=== PATIENT | male | born 1965 | race Caucasian/White ===

== ENCOUNTER 2017-03-21 19:16 | Emergency (ER) | payer BC, SELFPAY ==
[2017-03-21 19:17] VITALS: BP 155/102; PULSE 77; RESP 15; TEMP 36.4; O2SAT 97; BMI 31.5
[2017-03-21 19:25] VITALS: O2SAT 97
--- NOTE | 2017-03-21 19:36 | EKG12_ITS ---
Test Reason : COUGH Blood Pressure : / mmHG Vent. Rate : 079 BPM Atrial Rate : 079 BPM P-R Int : 148 ms QRS Dur : 086 ms QT Int : 370 ms P-R-T Axes : 026 004 017 degrees QTc Int : 424 ms Normal sinus rhythm Normal ECG Confirmed by CHIARA BROWNLEE, JULIET ([id number]), technical editor KRISHNA ONOFRE ([id number] on 03/23/2017 1:26:28 PM Referred By: GRAYSON Confirmed By:JULIET GUADARRAMA MD
--- NOTE | 2017-03-21 19:37 | CT_ITS ---
STUDY: CTA CHEST REASON FOR EXAM: Male, 51 years old. Shortness of breath. History of fractured clavicle RADIATION DOSAGE (If Supplied By Facility): CTDIvol = ( 16.73 ) mGy, DLP = ( 782.05 ) mGycm TECHNIQUE: The examination was performed with the intravenous administration of 100 ml of Isovue 370 contrast material. Post-processing of the angiographic images was performed, with multiplanar reformation and 3D reconstruction. Individualized dose optimization techniques were used for this CT. COMPARISON: None. FINDINGS: There are no pulmonary infiltrates or pleural effusions. There is a 1 cm nodule adjacent to the minor fissure in the right lower lobe (image 129 series 2). There is no pneumothorax. There are no filling defects within the pulmonary arteries to suggest pulmonary embolus. The pulmonary arteries are normal in caliber. There is no evidence of thoracic aortic aneurysm or dissection. The heart and pericardium are within normal limits. There is no thoracic lymphadenopathy. Images through the upper abdomen demonstrate no significant abnormality. There are no destructive osseous lesions. CT/CTA Chest W/WO Contrast IMPRESSION: No evidence of pulmonary embolus or other acute thoracic disease. 1 cm nodule in the right lower lobe. Short-term follow-up or further evaluation with PET/CT is recommended. Electronically Signed: Calvin Rondon, at 20:48 EST Tel , Service support ,
--- NOTE | 2017-03-21 19:37 | ED.VISSUMM ---
- ER Visit Summary Date of Service: 03/21/17 Chief Complaint: Cough, syncope History of Present Illness: The patient is a 51 M resents to the emergency department with 3 weeks of cough. The patient states that the symptoms have been progressive. He has been to the urgent care 3 separate times. He has been diagnosed with bronchitis. He was given Augmentin, prednisone, Tessalon Perles, and a cough suppressant. Feels like he is not improving. He denies any fevers or chills. He does feel mildly short of breath and has had intermittent chest pain with coughing. He denies any history of pulmonary embolus. He has had no fevers or night sweats. He states that today, he had a coughing fit and then passed out. It was witnessed by his . There was no seizure activity. He states that this happened 3 weeks ago with the same symptoms. Physical Examination: Vital signs reviewed General: Well-nourished, well-developed Head: Normocephalic, atraumatic Eyes: Pupils equal and reactive, extraocular muscles intact Neck, supple, no lymphadenopathy Heart: Regular rate and rhythm Respiratory: No distress, clear bilaterally Abdomen: Soft, nontender, nondistended, no peritoneal signs Back: Nontender Extremities: Nontender, no edema, no cords Skin: Normal color no rash Neuro: Alert and oriented, no focal or lateralizing deficits Test Results: KG shows no acute ischemic change. There is no prolonged QT. Screening labs are unremarkable. CTA shows no evidence of pulmonary embolus. There is a small pleural nodule. Emergency Department Course and Treatment: Patient has had cough syncope. With his cough and intermittent chest pain along with his intermittent shortness of breath I did feel that ruling out pulmonary embolus would be the most important. His EKG was unremarkable. There is no evidence of arrhythmia that would cause a syncopal episode. His CTA shows a small lung nodule, but no other acute abnormalities. His labs are unremarkable. I did discuss options with the patient. He wants to do outpatient therapy and I feel this is reasonable. I do feel the most important thing will be stopping or at least controlling his cough. The patient will placed on Lortab elixir. I did pet adoption counselor him that if he has any worsening symptoms or change in symptoms to return to the emergency department. Patient will be discharged home. Treatment Plan: [] Disposition: Discharge Impression:. Cough syncope This note was generated with [employer] dictation software. It may contain incorrect words, spelling, and punctuation that were not noted in review of the chart prior to signing ED Disposition - Plan for ED Patient: Disposition: Home or Assisted Living Chief Complaint: Cough Instructions: ED Cough Chronic Cause Unkn Prescriptions: Hydrocodone/APAP 7.5-325/15Ml [Lortab [Replacement] 7.5-325/15] 10 ml PO Q6H PRN PRN 3 Days #120 ml PRN Reason: Cough Referrals: Care Physician,No Primary [Primary Care Provider] -
[2017-03-21] MEDS: Ipratropium/Albuterol Sulfate 3 ML AMPUL.NEB INHALATION (19:46)
[2017-03-21 19:48] VITALS: PULSE 72; RESP 17
[2017-03-21 19:53] LABS: Absolute Lymphocyte Count 3.89 X10^3/ul (0.83-4.51); Absolute Neutrophil Count 3.6 X10^3/uL (2.0-7.7); Basophil# 0.03 X10^3/uL; Basophil% 0.4 % (0-1); Eosinophil# 0.11 X10^3/uL; Eosinophils% 1.3 % (0-5); Hematocrit 42.3 % (40-54); Hemoglobin 14.9 g/dl (13.0-16.5); Lymphocyte # 3.89 X10^3/ul (4.0); Lymphocyte % 46.4 % (19-41); Mean Corp Hgb Conc 35.2 g/gl (32-36); Mean Corpuscular Hgb 31.8 pg (27.0-32.0); Mean Corpuscular Volume 90.4 fL (80-94); Mean Platelet Vol. 10.4 fl (6.2-12.0); Monocyte# 0.75 X10^3/uL; Monocyte% 8.9 % (0-10); Neutrophil # 3.59 X10^3/uL (2.7-7.7); Neutrophil % 42.8 % (47-70); POSITIVE COUNT NO; POSITIVE DIFFERENTIAL NO; POSITIVE MORPHOLOGY NO; Platelet Count 207 K/mm3 (150-450); RBC Distribution Width CV 12.8 % (11.6-14.6); RBC Distribution Width SD 41.6 fl (35.1-43.9); Red Blood Count 4.68 M/mm3 (4.6-6.2); White Blood Count 8.4 K/mm3 (4.4-11.0)
[2017-03-21] MEDS: 0.9% Normal Saline 1,000 ML 1000 ML IV (19:57)
[2017-03-21 20:09] LABS: ALB/GLOB Ratio 1.2 RATIO (0.9-2.4); AST(SGOT) 18 U/L (15-37); Alanine Aminotransfer ALT/SGPT 44 U/L (16-61); Albumin, Serum 3.6 g/dL (3.2-5.0); Alkaline Phosphatase 77 U/L (45-117); Anion Gap 9 (5-15); BUN 18 mg/dL (7-18); BUN/Creat Ratio 16.8 RATIO (10-20); Calcium,Total 8.6 mg/dL (8.5-10.1); Chloride 108 mmol/L (98-107); Creatinine, Serum 1.07 mg/dL (0.70-1.30); EST Glomerular Filtration Rate 78 mL/min (>60); Est Glom Filt Rate - Afr Amer 94 mL/min (>60); Estimated Creatinine Clearance 85.28 ml/min; Glucose 107 mg/dL (74-106); Potassium 3.7 mmol/L (3.5-5.1); Protein, Total 6.6 g/dL (6.4-8.2); Sodium Level 143 mmol/L (136-145)
[2017-03-21 20:19] LABS: BNP,B-Type NATRIURETIC PEPTIDE 16.1 pg/mL (0-100)
--- NOTE | 2017-03-21 20:26 | ED.RN ---
PT REPORTS THAT TWICE PT HAS BEEN COUGHING SO HARD THAT HE PASSES OUT. THE FIRST TIME THIS HAPPENED WAS ABOUT 3 WEEKS AGO. PT REPORTS HE DOES NOT RECALL THE EVENTS. WELL. DENIES CHEST PAIN. PT REPORTS HARSH CONSISTENT COUGH FOR THREE WEEKS THAT IS NON PRODUCTIVE. PT ALERT AND ORIENTED X3.
[2017-03-21 20:28] VITALS: PULSE 74; RESP 16; O2SAT 95
[2017-03-21 20:56] VITALS: BP 146/89; PULSE 84; RESP 20; O2SAT 93
[2017-03-21] MEDS: HYDROCODONE/APAP 7.5-325/15ML 15 ML UDC PO (21:16)
[2017-03-21 21:18] VITALS: BP 130/84; PULSE 79; RESP 20; O2SAT 96
== END 2017-03-21 21:19 | disposition home or self-care (01) ==
LOC: ED 19:39
PROVIDERS: Emergency Provider Emergency Medicine
DX: R05 Cough (principal); R55 Syncope and collapse; R06.02 Shortness of breath
CPT/HCPCS: 71275; 80053; 83880; 84484; 85025; 93005; 94640; 96360; 99283; Q9967; A4216

== ENCOUNTER 2017-04-15 03:54 | Emergency (ER) | payer BC, SELFPAY ==
[2017-04-15 03:55] VITALS: BP 142/99; PULSE 99; RESP 25; TEMP 37; O2SAT 94; BMI 31.5
--- NOTE | 2017-04-15 04:14 | CT_ITS ---
STUDY: CT BRAIN WITHOUT CONTRAST REASON FOR EXAM: Male, 51 years old. Headache. Multiple syncopal episodes. RADIATION DOSAGE (If Supplied By Facility): CTDIvol = ( 44.99 ) mGy, DLP = ( 812.98 ) mGycm TECHNIQUE: Transaxial CT imaging of the brain was performed without administration of intravenous contrast material. Individualized dose optimization techniques were used for this CT. COMPARISON: None. FINDINGS: Normal soft tissue structures. Normal calvarium. Normal size ventricles and extra-axial spaces for the patient's age. Normal white matter tracts of the cerebral hemispheres. Normal basal ganglia and thalami. Normal brainstem. Normal cerebellum. There is no intracranial hemorrhage. There are no findings of an acute ischemic infarction. Minimal maxillary sinus mucosal thickening. CT/Brain/Head without Contrast IMPRESSION: Normal unenhanced CT scan of the brain. Minimal maxillary sinus mucosal thickening. Electronically Signed: Gee Cardoso MD at 5:01 EST , Service support ,
[2017-04-15] MEDS: Loratadine 10 MG Tablet PO (04:24)
[2017-04-15] MEDS: Pantoprazole Sodium 40 MG Tablet PO (04:24)
[2017-04-15 04:25] VITALS: O2SAT 97
--- NOTE | 2017-04-15 05:21 | ED.DCSUM_ITS ---
- ER Visit Summary Date of Service: 04/15/17 Chief Complaint: Cough and syncope History of Present Illness: The patient is a [address] Dickson. He reports that he has had a cough for the past 7 weeks. He has had an extensive evaluation for this. He has had chest x-ray, blood work, CT of the chest, EKG. No cause has been found. He has been on amoxicillin, a Z-Tanner, 2 rounds of steroids, multiple different cough medications and cough drops without relief. He reports that he passes out during these coughing episodes at times. reports that tonight he passed out 3 times while coughing. He was seated when this occurred and did not injure himself. Patient denies any fever, chills, sore throat, chest pain. He reports that he has shortness of breath when he is coughing only. Reports that he has a headache from coughing that is 6 out of 10 severity. He denies any numbness or weakness. Physical Examination: Vitals: Stable. Afebrile. General: Well-nourished and well-developed. Head: Normocephalic atraumatic. Neck: Supple, no lymphadenopathy. No JVD. Nontender. Cardiovascular: Regular rate and rhythm. No murmurs. Respiratory: No respiratory distress. Clear to auscultation bilaterally. Abdominal: Soft, nontender, nondistended, normal bowel sounds. No guarding, rebound, or peritoneal signs. Back: Nontender. Extremities: Nontender, no edema. Skin: Normal color, no rash. Neurologic: Alert and oriented ?3. Cranial nerves II through XII are intact. Normal strength and sensation. Psych: Normal affect. Test Results: Patient refused labs, EKG, or chest x-ray. CT head was obtained which shows minimal maxillary sinus mucosal thickening. No acute disease otherwise. Emergency Department Course and Treatment: I had a prolonged discussion with the patient and his about the causes of a chronic cough. I discussed allergens in the house, medications, reflux. They have not been able to find anything that seems to have brought this on. He was treated with Protonix and Claritin here. Treatment Plan: The patient will be discharged on Zyrtec and Prilosec. Instructed to follow-up with his graphic design specialist as previously scheduled. Return to the emergency department for any worsening symptoms. Disposition: To home in [facility] and stable condition. Impression: 1. Chronic cough. 2. Syncope. This note was generated with [employer] dictation software. It may contain incorrect words, spelling, and punctuation that were not noted in review of the chart prior to signing ED Disposition - Plan for ED Patient: Chief Complaint: Cough Instructions: ED Cough Chronic Cause Unkn Prescriptions: Cetirizine HCl [Zyrtec] 10 mg PO DAILY #30 capsule Omeprazole [Prilosec] 20 mg PO DAILY #30 capsule Additional Instructions: Follow up with your graphic design specialist as scheduled.
[2017-04-15 05:31] VITALS: BP 137/92; PULSE 95; RESP 22; O2SAT 96
== END 2017-04-15 05:32 | disposition home or self-care (01) ==
PROVIDERS: Emergency Provider Emergency Medicine; Family Provider Internal Medicine; PCP Internal Medicine
DX: R05 Cough (principal); R55 Syncope and collapse; R51 Headache; R06.00 Dyspnea, unspecified
CPT/HCPCS: 70450; 99283

== ENCOUNTER → 2018-01-19 15:38 | Outpatient (CLI) | payer BC, SELFPAY ==
--- NOTE | 2018-01-18 12:40 | COLBX_PTH ---
PATIENT: BREA ROWELL LOC: [facility] U#:[id number] AGE/SX: 59/M ROOM: RE01/19/[address]: Dr. Harrison Shah MD : 1965 BED: DIS: SPEC #: [id number] RECD: 01/19/18 15:13 STATUS: MACHELLE GILMAN #: [id number] SANTIAGO: 01/18/18 12:[address]: Harrison Shah DEPT: SURGICAL PATHOLOGY RECD BY: Joseluis Snyder ENTERED: 01/20/18 08:42 SP TYPE: COLON BX OTHR DR: Dr. Jany Dickson MD [facility] Tissues: Transverse colon Procedures: Surgery Specimen Level IV HEADER OPERATION: Colonoscopy with biopsy PRE-OP DIAGNOSIS: Screening / polyp TISSUE SUBMITTED: Transverse colon polyp biopsy, rule out adenoma MICROSCOPIC DIAGNOSIS Transverse colon polyp, biopsy: Fragments of tubular adenoma. SJ:anni 01/21/18 MICROSCOPIC DESCRIPTION Slides are reviewed. GROSS DESCRIPTION Received in fixative is one container labeled with the patient's name and designated transverse. The specimen consists of two irregular fragments of light price soft tissue that in aggregate measure 0.5 x 0.3 x 0.1 cm. The specimen is totally submitted in one cassette. / SJ:anni 01/20/18 TC:1 CPT: 81381
--- OUTSIDE RECORDS SUMMARY | 2018-03-07 23:00 | XMS RPT_ITS ---
:1965 Author Organization OHIP Care Team Providers Name Role Phone CAMILAKEMI Attending Unavailable ELROY MAR, DR. JANY Godinez Primary Care Unavailable DALY SOSA (DAIRY MANAGEMENT SPECIALIST) Attending Unavailable PITA RAND (ARTIFICIAL LEATHER CALENDER OPERATOR) Referring Unavailable GANTA, JANY Attending Unavailable GANTA, JANY Referring Unavailable GANTA, JANY Referring Unavailable RAPAKASTUARTHUBER Attending Unavailable GANTA, JANY Referring Unavailable GANTA, JANY Attending Unavailable GANTA, JANY Referring Unavailable JaJai cariasent Attending Unavailable JaHarrison carias Referring Unavailable Ganta, Jany Primary Care Unavailable Casey Murcia Attending Unavailable Ganta, Jany Primary Care Unavailable Primay Care Physicia, No Primary Care Unavailable Dontrell Skelton Attending Unavailable PROBLEMS PROBLEMS DATE TYPE CONDITION / CODE ATTENDING STATUS SOURCE 04/11/2017 Active Whooping cough, NA Active [facility] unspecified [place] species without Repository pneumonia / A37.90(ICD-10) 04/11/2017 Active Encounter for NA Active [facility] general adult [place] medical Repository examination without abnormal findings / Z00.00(ICD-10) 04/11/2017 Active Unknown / ELROY, AJNY Active [facility] UNK(Unknown) [place] Repository 03/21/2017 Unknown R05 - Cough / Dontrell Skelton Active [place] R05(ICD-10) [facility] Repository 03/16/2017 Active Cough / NA Active [facility] R05(ICD-10) [facility] Repository PROCEDURES PROCEDURES No Procedure Records FoundRESULTS RESULTS COLON BIOPSY (CHOOSE Observed: 01/18/2018 Status: F Source: [place]) 12:40 PM [facility] REPOSITORY Patient: YANICK ROWELL : 1965 (52/M) Acct Num: [id number] Phys: Harrison Shah Unit Num: [id number] Loc: LABSPEC Specimen: [id number] Received: 01/19/18 911 Spec Type: COLON BX TISSUES 1 TISSUES: Transverse colon GROSS DESCRIPTION Received in fixative is one container labeled with the patient's name and designated transverse. The specimen consists of two irregular fragments of light price soft tissue that in aggregate measure 0.5 x 0.3 x 0.1 cm. The specimen is totally submitted in one cassette. / SJ:anni 01/20/18 TC:1 CPT: 74756 HEADER OPERATION: Colonoscopy with biopsy PRE-OP DIAGNOSIS: Screening / polyp TISSUE SUBMITTED: Transverse colon polyp biopsy, rule out adenoma MICROSCOPIC DESCRIPTION Slides are reviewed. MICROSCOPIC DIAGNOSIS Transverse colon polyp, biopsy: Fragments of tubular adenoma. SJ:anni 01/21/18 Signed Anshul Bellamy 01/21/18 <signature on file> Performed By: #### PCOLBX #### [facility] [address] [place], [place] [address]meg[place], [address] PROGRESS Observed: 04/17/2017 Status: COMPLETED Source: [place] 12:11 PM [facility] REPOSITORY HNO ID: [id number] Author: Jany Abbasi Service: (none) Author Type: Physician Type: Progress Notes Filed: 04/26/2017 11:18 AM Note Text: Reason for Visit Patient presents with: Established Patient: follow up- coughing with passing out Yanick Rowell is a 51 year old male who presents here today for Above Complaints.. Health Maintenance PROSTATE CANCER SCREENING DISCUSSION COLORECTAL CANCER SCREENING,SEE MODIFIER HPI He went to the pulm after seeing me, who noted that bronch was attempted but due to the severe coughing could not be completed. Patient brought in a video today that showed his episode. he has a severe spasm during which he looses his breath and goes into a brief period of syncope, with flexion of the hands. Patient had codeine in the past but ran out. Notes it did not help him He has been very tired as he is not sleeping at night tiime, all this has been going for 7/8 weeks and last night was very bad. No problem-specific Assessment AND Plan notes found for this encounter. PAST MEDICAL HISTORY Diagnosis Date - Passive smoke exposure for 18 yrs. parents heavy smokers No past surgical history on file. FAMILY HISTORY Problem Relation Age of Onset - Adopted: Yes Social History Substance Use Topics - Smoking status: Never Smoker - Smokeless tobacco: Never Used - Alcohol use Yes Past medical history, appointments, medications, allergies reviewed. Pertinent Lab/Diagnostic Studies are reviewed and discussed today Current Outpatient Prescriptions: - cetirizine (ZYRTEC) 10 mg tablet - omeprazole (PRILOSEC) 20 mg capsule - azithromycin (ZITHROMAX) 250 mg tablet - benzonatate (TESSALON PERLE) 100 mg capsule - predniSONE (DELTASONE) 20 mg tablet - Izzzekadhwkuqlk-Tvrjhaexu-JI (BROMFED DM) 2-30-10 mg/5 mL syrup - albuterol HFA (PROAIR HFA) 90 mcg/actuation inhaler - fluticasone (FLONASE) 50 mcg/actuation nasal spray Review of Systems CONSTITUTIONAL: No fevers, chills night sweats, unintended weight loss CARDIOVASCULAR: No chest pain, dyspnea, palpitations, orthopnea, PND, ankle edema. PULM: No dyspnea, unexplained cough. GI: No dysphagia/odynophagia, problematic reflux, constipation, diarrhea, changes in stool habits, hematochezia, melena. : No new urinary complaints, including dysuria, gross hematuria or pyuria. NEURO: No new balance problems, peripheral weakness/paresthesias or numbness of concern. Physical Exam BP 128/74 (BP Site: Left Arm, BP Position: Sitting, BP Cuff Size: Large Adult) Pulse 103 Temp 37.4 ?C (99.4 ?F) Resp 12 Ht 177.8 cm (5' 10) Wt 99.8 kg (220 lb) SpO2 97% BMI 31.57 kg/m2 General appearance: Well appearing, alert, in no acute distress, well nourished. Skin: Skin color, texture, turgor normal, no suspicious rashes or lesions Head: Normocephalic, no masses, lesions, tenderness or abnormalities Eyes: Anicteric sclera. Pupils are equally round and reactive to light. Extraocular movements are intact. Lungs: Lungs clear to auscultation. No wheezing, rhonchi, rales Heart: RRR without murmur, gallop, or rubs. ASSESSMENT/PLAN: 1. Persistent cough for 3 weeks or longer - ICD9: 786.2, ICD10: R05 (primary diagnosis) To try this medication to see if it would work for him. - CODEINE SULFATE 60 MG TABLET 2. Cough syncope - ICD9: 786.2, ICD10: R05 he got same day appointment with marcelle Elias after last visit who attempted a bronch , could not complete due to cough started on medication for Reflux and then consulted ENT. Patient involved in shared decision making for management of her medical issues. History and medications reviewed. Epic updated as needed Refills taken care of and meds adjusted as indicated after reviewed history, exam and labs. Health Maintenance reviewed. Updated record and/or ordered tests as recorded. More than 25 mins spent with the patient JANY ABBASI MD CNOV Observed: 04/17/2017 Status: COMPLETED Source: [place] 11:40 AM [facility] REPOSITORY Office Visit (INTMWS) YANICK ROWELL ([id number]) 1965 M Date Time Provider Department 04/17/17 11:40 AM JANY ABBASI INTMWS During your visit today, we recorded the following information about you: Temperature Pulse Respiration Blood pressure 99.4 degrees 103/minute 12/minute 128/74 Weight Height 99.8 kg 1.778 m JANY ABBASI MD 04/26/2017 11:18 AM Signed Reason for Visit Patient presents with: Established Patient: follow up- coughing with passing out Yanick Rowell is a 51 year old male who presents here today for Above Complaints.. Health Maintenance PROSTATE CANCER SCREENING DISCUSSION COLORECTAL CANCER SCREENING,SEE MODIFIER HPI He went to the pulm after seeing me, who noted that bronch was attempted but due to the severe coughing could not be completed. Patient brought in a video today that showed his episode. he has a severe spasm during which he looses his breath and goes into a brief period of syncope, with flexion of the hands. Patient had codeine in the past but ran out. Notes it did not help him He has been very tired as he is not sleeping at night tiime, all this has been going for 7/8 weeks and last night was very bad. No problem-specific Assessment ANDamp; Plan notes found for this encounter. PAST MEDICAL HISTORY Diagnosis Date - Passive smoke exposure for 18 yrs. parents heavy smokers No past surgical history on file. FAMILY HISTORY Problem Relation Age of Onset - Adopted: Yes Social History Substance Use Topics - Smoking status: Never Smoker - Smokeless tobacco: Never Used - Alcohol use Yes Past medical history, appointments, medications, allergies reviewed. Pertinent Lab/Diagnostic Studies are reviewed and discussed today Current Outpatient Prescriptions: - cetirizine (ZYRTEC) 10 mg tablet - omeprazole (PRILOSEC) 20 mg capsule - azithromycin (ZITHROMAX) 250 mg tablet - benzonatate (TESSALON PERLE) 100 mg capsule - predniSONE (DELTASONE) 20 mg tablet - Bdfntvsyrtytsnv-Vkudrtmlb-YY (BROMFED DM) 2-30-10 mg/5 mL syrup - albuterol HFA (PROAIR HFA) 90 mcg/actuation inhaler - fluticasone (FLONASE) 50 mcg/actuation nasal spray Review of Systems CONSTITUTIONAL: No fevers, chills night sweats, unintended weight loss CARDIOVASCULAR: No chest pain, dyspnea, palpitations, orthopnea, PND, ankle edema. PULM: No dyspnea, unexplained cough. GI: No dysphagia/odynophagia, problematic reflux, constipation, diarrhea, changes in stool habits, hematochezia, melena. : No new urinary complaints, including dysuria, gross hematuria or pyuria. NEURO: No new balance problems, peripheral weakness/paresthesias or numbness of concern. Physical Exam BP 128/74 (BP Site: Left Arm, BP Position: Sitting, BP Cuff Size: Large Adult) Pulse 103 Temp 37.4 ?C (99.4 ?F) Resp 12 Ht 177.8 cm (5' 10ANDquot;) Wt 99.8 kg (220 lb) SpO2 97% BMI 31.57 kg/m2 General appearance: Well appearing, alert, in no acute distress, well nourished. Skin: Skin color, texture, turgor normal, no suspicious rashes or lesions Head: Normocephalic, no masses, lesions, tenderness or abnormalities Eyes: Anicteric sclera. Pupils are equally round and reactive to light. Extraocular movements are intact. Lungs: Lungs clear to auscultation. No wheezing, rhonchi, rales Heart: RRR without murmur, gallop, or rubs. ASSESSMENT/PLAN: 1. Persistent cough for 3 weeks or longer - ICD9: 786.2, ICD10: R05 (primary diagnosis) To try this medication to see if it would work for him. - CODEINE SULFATE 60 MG TABLET 2. Cough syncope - ICD9: 786.2, ICD10: R05 he got same day appointment with marcelle Elias after last visit who attempted a bronch , could not complete due to cough started on medication for Reflux and then consulted ENT. Patient involved in shared decision making for management of her medical issues. History and medications reviewed. Epic updated as needed Refills taken care of and meds adjusted as indicated after reviewed history, exam and labs. Health Maintenance reviewed. Updated record and/or ordered tests as recorded. More than 25 mins spent with the patient JANY ABBASI MD Referring Provider: JANY ABBASI [[id number]] Allergies As of Date: 04/17/2017 (No Known Allergies) Date Reviewed: 04/17/2017 Reviewed by: Hanna Tierney LPN - Fully Assessed Reason for Visit: Established Patient [175] Cmt: follow up- coughing with passing out Primary Visit Diagnosis:Persistent cough for 3 weeks or longer [R05] Other Visit Diagnosis:Cough syncope [R05] Order(s):codeine sulfate 60 mg tabletTake 1 tablet by mouth every 6 hours as needed for up to 30 days.Disp: 60 tabletRfl: 0 CONSULT TO PULMONARY MEDICINE [[id number]] Order #: [id number]: 1 CONSULT TO ENT [9008] Order #: [id number]: 1 Prescriptions as of 04/17/2017 Sig: CETIRIZINE 10 MG TABLET Take 1 tablet by mouth once d* CODEINE SULFATE 60 MG TABLET Take 1 tablet by mouth every * OMEPRAZOLE 20 MG CAPSULE,ASTER* Take 1 capsule by mouth twice* AZITHROMYCIN 250 MG TABLET 2 tablets on day 1, and then * BENZONATATE 100 MG CAPSULE Take 1-2 capsules by mouth th* PREDNISONE 20 MG TABLET Prednisone 40 mg (2-20mg tabl* BROMPHENIRAMINE-PSEUDOEPHEDRI* Take 5 mL by mouth four times* ALBUTEROL SULFATE HFA 90 MCG/* Inhale 2 Puffs as instructed * FLUTICASONE 50 MCG/ACTUATION * Use 2 Sprays in each nostril * Problem List As Of Date: 04/17/2017 (None) Prescriptions ordered this encounter Disp Refills Start End CODEINE SULFATE 60 MG TABLET 60 t* 0 04/17/2017 05/17/2017 Class: Print RX Route: ORAL Sig: Take 1 tablet by mouth every 6 hours as needed for up to 30 days. Encounter Status:Closed by JANY ABBASI MD on 04/26/17 PROGRESS Observed: 04/15/2017 Status: COMPLETED Source: [place] 2:23 PM [facility] REPOSITORY [facility] ID: [id number] Author: Huber English Service: (none) Author Type: Physician Type: Progress Notes Filed: 04/15/2017 3:09 PM Note Text: PULMONARY MEDICINE HISTORY AND PHYSICAL Patient Name: Yanick Rowell? ? PRIMARY CARE PHYSICIAN: JANY ABBASI MD ? REFERRING PHYSICIAN: Jany Abbasi MD CHIEF COMPLAINT: chronic cough HISTORY OF PRESENT ILLNESS: Yanick Rowell is a 51 year old male with a history of chronic cough. This patient is here for first Pulmonary office visit and consultation. I reviewed available objective data including imaging as available. The cough is described as non-productive, going on for 8 weeks. The cough started in february after he went to [facility] for vacation. He was perfectly fine there but it started while returning back. Cough is mostly dry and mostly at night time. He can go hours or some times a day with out cough. But when he has cough spells, he cant catch his breath. He had total 10 episodes of passing out for few seconds from excessive coughing which prompted him to go to urgent care and ER. He went to [facility] last night afetr having several coughing spells and passing out. Had Ct scan of brain and EKG which was WNL. Also had CT chest which showed incidental RLL lung nodule 1cm. Gives h/o acid reflux and frequent burping. He usually eats dinner before going to bed. Says that he feels better if he sleeps in sitting position. Also has symptoms of post nasal drip and needs to clear his throat frequently. Has runny nose today but denies any watery or itchy eyes. Had sinus problems in the past but denies any now. Denies any facial fullness. Denies any pets at home. No recent change in job/ house. No new carpet. No exposure to dust mites or mold. He says he feels better during day time when he is out working. The patient has tried prednsione which did not help. Is also on albuterol and seems to make it worse as per patient. He was tested for Bordetella pertussis. IGG levels are high but IgM levels are negative. He is given azithromycin and today is the last day. No evidence of eosinophilia Does snore a lot at night and has some witnessed apneic episodes as per . PAST MEDICAL HISTORY Diagnosis Date - Passive smoke exposure for 18 yrs. parents heavy smokers No past surgical history on file. 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 azithromycin (ZITHROMAX) 250 mg tablet 2 tablets on day 1, and then one tablet for 4 days benzonatate (TESSALON PERLE) 100 mg capsule Take 1-2 capsules by mouth three times daily as needed. predniSONE (DELTASONE) 20 mg tablet Prednisone 40 mg (2-20mg tablets) po QD for 5 days Dxbfgatqgofbqzv-Ocldvscqx-SG (BROMFED DM) 2-30-10 mg/5 mL syrup Take 5 mL by mouth four times daily as needed. albuterol HFA (PROAIR HFA) 90 mcg/actuation inhaler Inhale 2 Puffs as instructed every 4 hours as needed. fluticasone (FLONASE) 50 mcg/actuation nasal spray Use 2 Sprays in each nostril once daily. REVIEW OF SYSTEMS Constitutional:WELL DEVELOPED, WELL NOURISHED and NO EVIDENCE OF ACUTE DISTRESS HEENT:Negative for frequent or significant headaches, No changes in hearing or vision, no nose bleeds or other nasal problems RESPIRATORY: Cough; dry CARDIOVASCULAR: Negative for chest pain, leg swelling or palpitations. GASTROINTESTINAL: Negative for abdominal discomfort, blood in stools or black stools or change in bowel habits GENITOURINARY: No history of dysuria, frequency or incontinence PUBLICITY PERSON: NA MUSCULOSKELETAL: Negative for joint pain or swelling, back pain or muscle pain. NEUROLOGIC:Negative for focal numbness or weakness, headaches and dizziness or syncope. SKIN:Negative for lesions, rash, and itching. PSYCHIATRIC: Negative for sleep disturbance, mood disorder and recent psychosocial stressors. and See HPI HEMATOLOGIC/LYMPHATIC/IMMUNOLOGIC:{HEMATOLOGY/LYMPHATIC/IMMUNOLO ENDOCRINE: Negative for cold or heat intolerance, polyuria, polydipsia and goiter. The remainder of the ROS was negative. PHYSICAL EXAMINATION: VITAL SIGNS: BP 114/94 Pulse 85 Ht 5' 10 (1.78m) Wt 220 lb (99.8kg) SpO2 98% BMI 31.57 kg/(m2). General appearance: well appearing, alert, in no acute distress Skin: skin color, texture, turgor normal, no rashes or lesions Eyes: Anicteric sclera. Pupils are equally round and reactive to light. Extraocular movements are intact. ENT: No oral or nasal erythema, bleeding, lesions, striae Heme/Lymph:Supple, no adenopathy; thyroid symmetric, normal size, no bruits Lungs: lungs clear to auscultation, no wheezing or rhonchi Heart: RRR without murmur, gallop, or rubs. No ectopy GI: Normal abdominal exam, Abdomen soft, non-tender. Bowel sounds normal. No masses, organomegaly Musculoskeletal: Extremities normal. No deformities, edema, or skin discoloration. Good capillary refill. Psych: no history of psychiatric problems, no history of depression Neuro: Gait normal. Reflexes normal and symmetric. Sensation grossly intact. LAST LAB RESULTS: No results found for this basename: inr:1,ptsec:1 Glucose (mg/dL) Date Value 04/11/2017 106 Potassium (mmol/L) Date Value 04/11/2017 4.3 Sodium (mmol/L) Date Value 04/11/2017 143 Chloride (mmol/L) Date Value 04/11/2017 106 CO2 (mmol/L) Date Value 04/11/2017 25 Creatinine (mg/dL) Date Value 04/11/2017 1.19 BUN (mg/dL) Date Value 04/11/2017 14 Anion Gap (mmol/L) Date Value 04/11/2017 12 Calcium (mg/dL) Date Value 04/11/2017 10.0 Protein, Total (g/dL) Date Value 04/11/2017 7.5 Albumin (g/dL) Date Value 04/11/2017 4.7 Bilirubin, Total (mg/dL) Date Value 04/11/2017 0.5 Alkaline Phosphatase (U/L) Date Value 04/11/2017 71 AST (U/L) Date Value 04/11/2017 24 ALT (U/L) Date Value 04/11/2017 38 Glucose Date Value Ref Range Status 04/11/2017 106 (H) 74 - 99 mg/dL Final Comment: The [place] [employer] (ADA) provides guidance for cutoff values for fasting glucose and random glucose. The ADA defines fasting as no caloric intake for at least 8 hours. Fasting plasma glucose results between 100 to 125 mg/dL indicate increased risk for diabetes (prediabetes). Fasting plasma glucose results greater than or equal to 126 mg/dL meet the criteria for diagnosis of diabetes. In the absence of unequivocal hyperglycemia, results should be confirmed by repeat testing. In a patient with classic symptoms of hyperglycemia or hyperglycemic crisis, random plasma glucose results greater than or equal to 200 mg/dL meet the criteria for diagnosis of diabetes. Reference: Standards of Medical Care in Diabetes 2016, [place] [employer]. Diabetes Care. 2016.39(Suppl 1). DATA: Diagnostic tests reviewed for today's visit, films/specimens were personally reviewed by me: OTHER TESTING: Echo:N/A Chest xray:03/29: RESULT: Lines, tubes, and devices: ?None. Lungs and pleura: ?There is no focal consolidation or acute pleural process. There is no overt pulmonary edema. CT CHEST:(03/21/17) from [facility]: Not scanned yet. Has 1cm RLL nodule seen. No infiltrates. PFT: None available IMPRESSIONS: ASSESSMENT/PLAN: 1. Chronic cough - ICD9: 786.2, ICD10: R05 (primary diagnosis) Of more than 8 weeks duration. From his symptoms feels like cough is likely secondary to acid reflux. Will give a trial of omeprazole 20 mg bid for 1 month Also has cetrizine given in the ED. Advised to take 1 tab daily Flonase / fluticasone nasal spray 1 spray in each nostril 2 times a day If cough does not get better, will do allergy testing - SPIROMETRY WITH DILATOR IF OBSTRUCTED before next appt 2. Laryngitis from reflux of stomach acid - ICD9: 464.00, 530.81, ICD10: J04.0, K21.9 - Discussed lifestyle modifications including no meals three hours before sleep and head of bed elevation - OMEPRAZOLE 20 MG CAPSULE,DELAYED RELEASE 2 times aday 3. Lung nodule seen on imaging study - ICD9: 793.11, ICD10: R91.1 1 cm lung nodule. Will need further work up. Less likely malignancy. Never smoker. Will rpt Ct chest in 3 months. Not ordered. Will order next visit. Also will need sleep studies to r/o MONALISA Medications reviewed Education provided today regarding the stated disease states Patient Instructions: See AVS Written and verbal health teaching given to patient, patient verbalizes understanding and agrees with treatment plan. Followup discussed. Electronically Signed: Huber English MD,[facility] April 15, 2017 CNOV Observed: 04/15/2017 Status: COMPLETED Source: [place] 1:30 PM [facility] REPOSITORY Office Visit (PULMGR) YANICK ROWELL ([id number]) 1965 M Date Time Provider Department 04/15/17 1:30 PM HUBER ENGLISH PULMGR During your visit today, we recorded the following information about you: Pulse Blood pressure Weight Height 85/minute 114/94 99.8 kg 1.778 m Huber English MD,[facility] 04/15/2017 3:09 PM Signed PULMONARY MEDICINE HISTORY AND PHYSICAL Patient Name: Yanick Rowell? ? PRIMARY CARE PHYSICIAN: JANY ABBASI MD ? REFERRING PHYSICIAN: Jany Abbasi MD CHIEF COMPLAINT: chronic cough HISTORY OF PRESENT ILLNESS: Yanick Rowell is a 51 year old male with a history of chronic cough. This patient is here for first Pulmonary office visit and consultation. I reviewed available objective data including imaging as available. The cough is described as non-productive, going on for 8 weeks. The cough started in february after he went to [facility] for vacation. He was perfectly fine there but it started while returning back. Cough is mostly dry and mostly at night time. He can go hours or some times a day with out cough. But when he has cough spells, he cant catch his breath. He had total 10 episodes of passing out for few seconds from excessive coughing which prompted him to go to urgent care and ER. He went to [facility] last night afetr having several coughing spells and passing out. Had Ct scan of brain and EKG which was WNL. Also had CT chest which showed incidental RLL lung nodule 1cm. Gives h/o acid reflux and frequent burping. He usually eats dinner before going to bed. Says that he feels better if he sleeps in sitting position. Also has symptoms of post nasal drip and needs to clear his throat frequently. Has runny nose today but denies any watery or itchy eyes. Had sinus problems in the past but denies any now. Denies any facial fullness. Denies any pets at home. No recent change in job/ house. No new carpet. No exposure to dust mites or mold. He says he feels better during day time when he is out working. The patient has tried prednsione which did not help. Is also on albuterol and seems to make it worse as per patient. He was tested for Bordetella pertussis. IGG levels are high but IgM levels are negative. He is given azithromycin and today is the last day. No evidence of eosinophilia Does snore a lot at night and has some witnessed apneic episodes as per . PAST MEDICAL HISTORY Diagnosis Date - Passive smoke exposure for 18 yrs. parents heavy smokers No past surgical history on file. 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 azithromycin (ZITHROMAX) 250 mg tablet 2 tablets on day 1, and then one tablet for 4 days benzonatate (TESSALON PERLE) 100 mg capsule Take 1-2 capsules by mouth three times daily as needed. predniSONE (DELTASONE) 20 mg tablet Prednisone 40 mg (2-20mg tablets) po QD for 5 days Rymqxnmzuyiiggc-Xvrthgkqq-BM (BROMFED DM) 2-30-10 mg/5 mL syrup Take 5 mL by mouth four times daily as needed. albuterol HFA (PROAIR HFA) 90 mcg/actuation inhaler Inhale 2 Puffs as instructed every 4 hours as needed. fluticasone (FLONASE) 50 mcg/actuation nasal spray Use 2 Sprays in each nostril once daily. REVIEW OF SYSTEMS Constitutional:WELL DEVELOPED, WELL NOURISHED and NO EVIDENCE OF ACUTE DISTRESS HEENT:Negative for frequent or significant headaches, No changes in hearing or vision, no nose bleeds or other nasal problems RESPIRATORY: Cough; dry CARDIOVASCULAR: Negative for chest pain, leg swelling or palpitations. GASTROINTESTINAL: Negative for abdominal discomfort, blood in stools or black stools or change in bowel habits GENITOURINARY: No history of dysuria, frequency or incontinence PUBLICITY PERSON: NA MUSCULOSKELETAL: Negative for joint pain or swelling, back pain or muscle pain. NEUROLOGIC:Negative for focal numbness or weakness, headaches and dizziness or syncope. SKIN:Negative for lesions, rash, and itching. PSYCHIATRIC: Negative for sleep disturbance, mood disorder and recent psychosocial stressors. and See HPI HEMATOLOGIC/LYMPHATIC/IMMUNOLOGIC:{HEMATOLOGY/LYMPHATIC/IMMUNOLO ENDOCRINE: Negative for cold or heat intolerance, polyuria, polydipsia and goiter. The remainder of the ROS was negative. PHYSICAL EXAMINATION: VITAL SIGNS: BP 114/94 Pulse 85 Ht 5' 10ANDquot; (1.78m) Wt 220 lb (99.8kg) SpO2 98% BMI 31.57 kg/(m2). General appearance: well appearing, alert, in no acute distress Skin: skin color, texture, turgor normal, no rashes or lesions Eyes: Anicteric sclera. Pupils are equally round and reactive to light. Extraocular movements are intact. ENT: No oral or nasal erythema, bleeding, lesions, striae Heme/Lymph:Supple, no adenopathy; thyroid symmetric, normal size, no bruits Lungs: lungs clear to auscultation, no wheezing or rhonchi Heart: RRR without murmur, gallop, or rubs. No ectopy GI: Normal abdominal exam, Abdomen soft, non-tender. Bowel sounds normal. No masses, organomegaly Musculoskeletal: Extremities normal. No deformities, edema, or skin discoloration. Good capillary refill. Psych: no history of psychiatric problems, no history of depression Neuro: Gait normal. Reflexes normal and symmetric. Sensation grossly intact. LAST LAB RESULTS: No results found for this basename: inr:1,ptsec:1 Glucose (mg/dL) Date Value 04/11/2017 106 Potassium (mmol/L) Date Value 04/11/2017 4.3 Sodium (mmol/L) Date Value 04/11/2017 143 Chloride (mmol/L) Date Value 04/11/2017 106 CO2 (mmol/L) Date Value 04/11/2017 25 Creatinine (mg/dL) Date Value 04/11/2017 1.19 BUN (mg/dL) Date Value 04/11/2017 14 Anion Gap (mmol/L) Date Value 04/11/2017 12 Calcium (mg/dL) Date Value 04/11/2017 10.0 Protein, Total (g/dL) Date Value 04/11/2017 7.5 Albumin (g/dL) Date Value 04/11/2017 4.7 Bilirubin, Total (mg/dL) Date Value 04/11/2017 0.5 Alkaline Phosphatase (U/L) Date Value 04/11/2017 71 AST (U/L) Date Value 04/11/2017 24 ALT (U/L) Date Value 04/11/2017 38 Glucose Date Value Ref Range Status 04/11/2017 106 (H) 74 - 99 mg/dL Final Comment: The [place] Diabetes Association (ADA) provides guidance for cutoff values for fasting glucose and random glucose. The ADA defines fasting as no caloric intake for at least 8 hours. Fasting plasma glucose results between 100 to 125 mg/dL indicate increased risk for diabetes (prediabetes). Fasting plasma glucose results greater than or equal to 126 mg/dL meet the criteria for diagnosis of diabetes. In the absence of unequivocal hyperglycemia, results should be confirmed by repeat testing. In a patient with classic symptoms of hyperglycemia or hyperglycemic crisis, random plasma glucose results greater than or equal to 200 mg/dL meet the criteria for diagnosis of diabetes. Reference: Standards of Medical Care in Diabetes 2016, [place] [employer] Association. Diabetes Care. 2016.39(Suppl 1). DATA: Diagnostic tests reviewed for today's visit, films/specimens were personally reviewed by me: OTHER TESTING: Echo:N/A Chest xray:03/29: RESULT: Lines, tubes, and devices: ?None. Lungs and pleura: ?There is no focal consolidation or acute pleural process. There is no overt pulmonary edema. CT CHEST:(03/21/17[facility] from [facility]: Not scanned yet. Has 1cm RLL nodule seen. No infiltrates. PFT: None available IMPRESSIONS: ASSESSMENT/PLAN: 1. Chronic cough - ICD9: 786.2, ICD10: R05 (primary diagnosis) Of more than 8 weeks duration. From his symptoms feels like cough is likely secondary to acid reflux. Will give a trial of omeprazole 20 mg bid for 1 month Also has cetrizine given in the ED. Advised to take 1 tab daily Flonase / fluticasone nasal spray 1 spray in each nostril 2 times a day If cough does not get better, will do allergy testing - SPIROMETRY WITH DILATOR IF OBSTRUCTED before next appt 2. Laryngitis from reflux of stomach acid - ICD9: 464.00, 530.81, ICD10: J04.0, K21.9 - Discussed lifestyle modifications including no meals three hours before sleep and head of bed elevation - OMEPRAZOLE 20 MG CAPSULE,DELAYED RELEASE 2 times aday 3. Lung nodule seen on imaging study - ICD9: 793.11, ICD10: R91.1 1 cm lung nodule. Will need further work up. Less likely malignancy. Never smoker. Will rpt Ct chest in 3 months. Not ordered. Will order next visit. Also will need sleep studies to r/o MONALISA Medications reviewed Education provided today regarding the stated disease states Patient Instructions: See AVS Written and verbal health teaching given to patient, patient verbalizes understanding and agrees with treatment plan. Followup discussed. Electronically Signed: Huber English MD,FCCP April 15, 2017 Huber English MD,FCCP 04/15/2017 2:27 PM Signed My Plan and Interventions: 1. Return to office in 4-6 weeks 2. Tests to be ordered today: PFT's 3. New medications today: omeprazole 4. Special Instructions: call with worsening of symptoms 5. Summary of today's visit: Chronic cough 6. Referrals today: none Copy to Referring physician-yes Thank you for allowing me to participate in this patient's care. Referring Provider: JANY ABBASI [[id number]] Allergies As of Date: 04/15/2017 (No Known Allergies) Date Reviewed: 04/15/2017 Reviewed by: Huber English - Fully Assessed Reason for Visit: Cough [28] Cmt: cough to the point of passing out-started 02-28-2016 Primary Visit Diagnosis:Chronic cough [R05] Other Visit Diagnoses:Laryngitis from reflux of stomach acid [J04.0, K21.9] Lung nodule seen on imaging study [R91.1] Order(s):SPIROMETRY WITH DILATOR IF OBSTRUCTED [[id number]] Order #: [id number] FUTURE omeprazole (PRILOSEC) 20 mg capsuleTake 1 capsule by mouth twice daily before meals.Disp: 60 capsuleRfl: 1 Prescriptions as of 04/15/2017 Sig: OMEPRAZOLE 20 MG CAPSULE,ASTER* Take 1 capsule by mouth twice* AZITHROMYCIN 250 MG TABLET 2 tablets on day 1, and then * BENZONATATE 100 MG CAPSULE Take 1-2 capsules by mouth th* PREDNISONE 20 MG TABLET Prednisone 40 mg (2-20mg tabl* BROMPHENIRAMINE-PSEUDOEPHEDRI* Take 5 mL by mouth four times* ALBUTEROL SULFATE HFA 90 MCG/* Inhale 2 Puffs as instructed * FLUTICASONE 50 MCG/ACTUATION * Use 2 Sprays in each nostril * Problem List As Of Date: 04/15/2017 (None) Other instructions from your clinician: My Plan and Interventions: 1. Return to office in 4-6 weeks 2. Tests to be ordered today: PFT's 3. New medications today: omeprazole 4. Special Instructions: call with worsening of symptoms 5. Summary of today's visit: Chronic cough 6. Referrals today: none Copy to Referring physician-yes Thank you for allowing me to participate in this patient's care. Prescriptions ordered this encounter Disp Refills Start End OMEPRAZOLE 20 MG CAPSULE,DELAYED REL* 60 c* 1 04/15/2017 Class: Print RX Route: ORAL Sig: Take 1 capsule by mouth twice daily before meals. Disposition: Return in about 6 weeks (around 05/27/2017). Follow-up and Disposition History Recorded Letter Text Encounter Status:Closed by HUBER ENGLISH MD on 04/15/17 EMERGENCY DEPARTMENT Observed: 04/15/2017 Status: F Source: [place] SUMMARY 7:33 AM [facility] REPOSITORY [facility] Medical Records Department [address] [place] [address] Emergency Department Summary 04/15/17 0519 MR#: [id number] Acct: [id number] Name: YANICK ROWELL Rep #: [id number] : 1965 51 From: Casey Murcia MD PCP: Jany Abbasi MD Status: DEP ER - ER Visit Summary Date of Service: 04/15/17 Chief Complaint: Cough and syncope History of Present Illness: The patient is a [address] Abbasi. He reports that he has had a cough for the past 7 weeks. He has had an extensive evaluation for this. He has had chest x-ray, blood work, CT of the chest, EKG. No cause has been found. He has been on amoxicillin, a Z-Tanner, 2 rounds of steroids, multiple different cough medications and cough drops without relief. He reports that he passes out during these coughing episodes at times. reports that tonight he passed out 3 times while coughing. He was seated when this occurred and did not injure himself. Patient denies any fever, chills, sore throat, chest pain. He reports that he has shortness of breath when he is coughing only. Reports that he has a headache from coughing that is 6 out of 10 severity. He denies any numbness or weakness. Physical Examination: Vitals: Stable. Afebrile. General: Well-nourished and well-developed. Head: Normocephalic atraumatic. Neck: Supple, no lymphadenopathy. No JVD. Nontender. Cardiovascular: Regular rate and rhythm. No murmurs. Respiratory: No respiratory distress. Clear to auscultation bilaterally. Abdominal: Soft, nontender, nondistended, normal bowel sounds. No guarding, rebound, or peritoneal signs. Back: Nontender. Extremities: Nontender, no edema. Skin: Normal color, no rash. Neurologic: Alert and oriented 3. Cranial nerves II through XII are intact. Normal strength and sensation. Psych: Normal affect. Test Results: Patient refused labs, EKG, or chest x-ray. CT head was obtained which shows minimal maxillary sinus mucosal thickening. No acute disease otherwise. Emergency Department Course and Treatment: I had a prolonged discussion with the patient and his about the causes of a chronic cough. I discussed allergens in the house, medications, reflux. They have not been able to find anything that seems to have brought this on. He was treated with Protonix and Claritin here. Treatment Plan: The patient will be discharged on Zyrtec and Prilosec. Instructed to follow-up with his answerer as previously scheduled. Return to the emergency department for any worsening symptoms. Disposition: To home in improved and stable condition. Impression: 1. Chronic cough. 2. Syncope. This note was generated with [employer] software. It may contain incorrect words, spelling, and punctuation that were not noted in review of the chart prior to signing ED Disposition - Plan for ED Patient: Chief Complaint: Cough Instructions: ED Cough Chronic Cause Unkn Prescriptions: Cetirizine HCl [Zyrtec] 10 mg PO DAILY #30 capsule Omeprazole [Prilosec] 20 mg PO DAILY #30 capsule Additional Instructions: Follow up with your answerer as scheduled. What to do if you have Problems For any increased pain, shortness of breath, bleeding, nausea or vomiting, chest pain, or any unexpected problems, contact your Primary Care Provider. Call [facility] ([phone]) or report to the closest Emergency Room. Call 911 if necessary. 04/15/17 0733 <Electronically signed by Casey Murcia MD> Date Casey Murcia MD Cosigner Signature (If Indicated): Date CC: Jany Abbasi MD BRAIN/HEAD WITHOUT Observed: 04/15/2017 Status: F Source: [place] CONTRAST 4:14 AM [facility] REPOSITORY [facility] Imaging Services [address] [place] [address] Brain/Head without Contrast MR#: [id number] Acct: [id number] Name: YANICK ROWELL Rep #: [id number] : 1965 M 51 From: Gee Cardoso PCP: Jany Abbasi MD Status: REG ER Study: Brain/Head without Contrast Date of Exam: 04/15/17 Exam# [id number] Ordering Dr: Casey Murcia MD STUDY: CT BRAIN WITHOUT CONTRAST REASON FOR EXAM: Male, 51 years old. Headache. Multiple syncopal episodes. RADIATION DOSAGE (If Supplied By Facility): CTDIvol = ( 44.99 ) mGy, DLP = ( 812.98 ) mGycm TECHNIQUE: Transaxial CT imaging of the brain was performed without administration of intravenous contrast material. Individualized dose optimization techniques were used for this CT. COMPARISON: None. FINDINGS: Normal soft tissue structures. Normal calvarium. Normal size ventricles and extra-axial spaces for the patient's age. Normal white matter tracts of the cerebral hemispheres. Normal basal ganglia and thalami. Normal brainstem. Normal cerebellum. There is no intracranial hemorrhage. There are no findings of an acute ischemic infarction. Minimal maxillary sinus mucosal thickening. CT/Brain/Head without Contrast IMPRESSION: Normal unenhanced CT scan of the brain. Minimal maxillary sinus mucosal thickening. 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 Request/Comment: - RULE OUT FOR BORDETELLA PERTUSSIS Culture Result - No growth 5 days Performed By: #### BLCUL #### [facility] [address] [place] [address] CBC AND DIFFERENTIAL Collected: 04/11/2017 Status: F Source: [place] 10:40 AM [facility] REPOSITORY TYPE CODE TESTS RESULT OUT OF REFERENCE UNITS RANGE LAB WBC 3.70-11.00 k/uL WBC 5.11 LAB RBC 4.20-6.00 m/uL RBC 5.14 LAB HGB 13.0-17.0 g/dL Hemoglobin 15.5 LAB HCT 39.0-51.0 % Hematocrit 47.8 LAB MCV 80.0-100.0 fL MCV 93.0 LAB MCH 26.0-34.0 pG MCH 30.2 LAB MCHC 30.5-36.0 g/dL MCHC 32.4 LAB RDWCV 11.5-15.0 % RDW-CV 12.6 LAB PLTCT 150-400 k/uL Platelet Count 245 LAB MPV 9.0-12.7 fL MPV 11.1 LAB ANEUT % Neut% 50.4 LAB AANEUT 1.45-7.50 k/uL Abs Neut 2.57 LAB ALYMP % Lymph% 38.2 LAB AALYMP 1.00-4.00 k/uL Abs Lymph 1.95 LAB AMONO % [place]% 9.0 LAB AAMONO <0.87 k/uL Abs [place] 0.46 LAB AEOS % Eosin% 1.8 LAB AAEOS <0.46 k/uL Abs Eosin 0.09 LAB ABASO % Baso% 0.6 LAB AABASO <0.11 k/uL Abs Baso 0.03 LAB AUNRBC 0 /100 WBC NRBCs 0.0 LAB ABNRBC <0.01 k/uL Absolute nRBC <0.01 LAB DTYP DTYPE Auto Diff Performed By: #### CBCDIF, CMP, LIPB #### [facility] [address] [place], [place] [address] #### BPPABS, BPAG, BPAA #### [facility] [address] [place] [address] [phone] COMP METABOLIC PANEL Collected: 04/11/2017 Status: F Source: [place] 10:40 AM [facility] RE[facility] TYPE CODE TESTS RESULT OUT OF REFERENCE UNITS RANGE LAB TP 6.3-8.0 g/dL Protein, Total 7.5 LAB ALB 3.9-4.9 g/dL Albumin 4.7 LAB CA 8.5-10.2 mg/dL Calcium, Total 10.0 LAB TBIL 0.2-1.3 mg/dL Bilirubin, Total 0.5 LAB ALKP 36-108 U/L Alkaline Phosphatase 71 LAB AST 14-40 U/L AST 24 LAB GLU 74-99 mg/dL Glucose High 106 Result Comment: The [place] Diabetes Association (ADA) provides guidance for cutoff values for fasting glucose and random glucose. The ADA defines fasting as no caloric intake for at least 8 hours. Fas ting plasma glucose results between 100 to 125 mg/dL indicate increased risk for diabetes (prediabetes). Fasting plasma glucose results greater than or equal to 126 mg/dL meet the criteria for diagnosis of diabetes. In the absence of unequivocal hyperglycemia, results should be confirmed by repeat testing. In a patient with classic symptoms of hyperglycemia or hyperglycemic crisis, random plasma glucose results greater than or equal to 200 mg/dL meet the criteria for diagnosis of diabetes. Reference: Standards of Medical Care in Diabetes 2016, [place] [employer]. Diabetes Care. 2016.39(Suppl 1). LAB BUN 9-24 mg/dL BUN 14 LAB CRET 0.73-1.22 mg/dL Creatinine 1.19 LAB NA 136-144 mmol/L Sodium 143 LAB K 3.7-5.1 mmol/L Potassium 4.3 LAB CL 97-105 mmol/L Chloride High 106 LAB CO2 22-30 mmol/L CO2 25 LAB AGAP 9-18 mmol/L Anion Gap 12 LAB ALT 10-54 U/L ALT 38 LAB GFRAA eGFR- Amer. >60 LAB GFRNAA . eGFR-All Other Races >60 Result Comment: eGFR (Estimated GFR) Units of measure: mL/min/1.73 meters squared eGFR is derived from the reexpressed MDRD Study equation using the following parameters: serum creatinine, age, gender and race. The creatinine assay has been calibrated to be traceable to IDMS. An eGFR <60 mL/min/1.73m2 for >3 months is consistent with chronic kidney disease. Refer to KDOQI guidelines for clinical interpretation. In patients with unstable renal function, e.g. those with acute kidney injury, the eGFR may not accurately reflect actual GFR. Performed By: #### CBCDIF, CMP, LIPB #### [facility] [address] [place], [place] [address] #### BPPABS, BPAG, BPAA #### [facility] [address] [place] [address] [phone] LIPID PANEL, BASIC Collected: 04/11/2017 Status: C Source: [place] 10:40 AM [facility] REPOSITORY TYPE CODE TESTS RESULT OUT OF REFERENCE UNITS RANGE LAB CHOL <200 mg/dL Cholesterol High 248 Result Comment: <200 mg/dL, Desirable 200-239 mg/dL, Borderline high >239 mg/dL, High LAB TRIGLY <150 mg/dL Triglyceride High 208 Result Comment: <150 mg/dL, Normal 150-199 mg/dL, Borderline high 200-499 mg/dL, High >499 mg/dL, Very high LAB HDL >39 mg/dL HDL-Cholesterol Low 39 Result Comment: 40-59 mg/dL, Acceptable >59 mg/dL, High: Negative risk factor for coronary heart disease <40 mg/dL, Low: Positive risk factor for coronary heart disease LAB LDL <100 mg/dL LDL-Cholesterol High 167 Result Comment: <100 mg/dL, Optimal 100-129 mg/dL, Near optimal/above optimal 130-159 mg/dL, Borderline high 160-189 mg/dL, High >189 mg/dL, Very high Secondary prevention optimal LDL Cholesterol levels are recommended to be < 70 mg/dL LAB NONHDL <130 mg/dL Non HDL High Cholesterol 209 Result Comment: <130 mg/dL, Optimal 130-159 mg/dL, Near optimal/above optimal 160-189 mg/dL, Borderline high 190-219 mg/dL, High >219 mg/dL, Very high Secondary prevention optimal non HDL Cholesterol levels are recommended to be < 100 mg/dL LAB FT hrs Fasting Reviewed by Jorge Calvo, PhD, DABCC, FACB. Result Comment: Corrected on 04/13 AT 0813: Previously reported as 13 LAB VLDL <30 mg/dL VLDL High Cholesterol 42 LAB TCHDL <5.10 TC:HDL Ratio High 6.36 LAB LDLHDL <2.54 LDL:HDL Ratio High 4.28 Result Comment: Reference: 1. National Cholesterol Education Program ATP III Guideline At-A-Glance Quick Desk Reference: National Heart, Lung, and Blood [place]. National Institutes of Health. 2001: NIH Publication No. 01-3305. 2. An International Atherosclerosis Society position paper: global recommendations for the management of dyslipidemia: executive summary, Atherosclerosis. 2014: 232(2):410-413. Performed By: #### CBCDIF, CMP, LIPB #### [facility] [address] [place], [place] [address] #### BPPABS, BPAG, BPAA #### [facility] [address] [place] [address] [phone] B. PERTUSSIS ABS Collected: 04/11/2017 Status: F Source: [place] 10:40 AM [facility] REPOSITORY TYPE CODE TESTS RESULT OUT OF RANGE REFERENCE UNITS LAB BPAB <=1.04 IV High B pert 4.08 IgG Ab Result Comment: (NOTE) Bordetella pertussis Immunoblot to follow. INTERPRETIVE INFORMATION: B. pertussis Ab, IgG 0.94 IV or less: Negative - No significant level of detectable B. pertussis IgG antibody. 0.95-1.04 IV: Equivocal - Repeat testing in 10-14 days may be helpful. 1.05 IV or greater: Positive - IgG antibody to B. pertussis detected, which may indicate a current or recent exposure/immunization to B. pertussis Test developed and characteristics determined by [facility]. See Compliance Statement D: [employer] LAB BPABM <=1.1 IV B pert IgM Ab 0.3 Result Comment: (NOTE) When Bordetella pertussis Antibodies by DAIANA testing is negative, no further testing is performed. INTERPRETIVE INFORMATION: B. pertussis Ab, IgM w/Reflex 0.9 IV or less: Negative - No significant level of detectable B. pertussis IgM antibody. 1.0-1.1 IV: Equivocal - Repeat testing in 10-14 days may be helpful. 1.2 IV or greater: Positive - IgM antibody to B. pertussis detected, which may indicate a current or recent exposure/immunization to B. pertussis. Recommend that treatment decisions be based on the result of the B. pertussis IgM immunoblot test instead of the DAIANA test. B. pertussis IgM test by DAIANA may produce false-positive results. Test developed and characteristics determined by [facility]. See Compliance Statement A: [facility] Performed by [facility], [address] [place] [address] [email or web address], Romaine Kovacs MD, Lab. Director LAB BPABA <=1.1 IV High B pert IgA Ab 2.9 Result Comment: (NOTE) Bordetella pertussis Immunoblot to follow. INTERPRETIVE INFORMATION: B. pertussis Ab, IgA w/Reflex 0.9 IV or less: Negative - No significant level of detectable B. pertussis IgA antibody. 1.0-1.1 IV: Equivocal - Repeat testing in 10-14 days may be helpful. 1.2 IV or greater: Positive - IgA antibody to B. pertussis detected, which may indicate a current or past exposure/immunization to B. pertussis. Test developed and characteristics determined by [facility]. See Compliance Statement A: [facility] Performed By: #### CBCDIF, CMP, LIPB #### [facility] [address] [place], [place] [address] #### BPPABS, BPAG, BPAA #### [facility] [address] [place] [address] [phone] B.PERT IGG IMMUNOBLT Collected: 04/11/2017 Status: F Source: [place] 10:40 AM [facility] REPOSITORY TYPE CODE TESTS RESULT OUT OF RANGE REFERENCE UNITS LAB BPAGT Negative Abnormal B.pert IgG SEE NOTE Alert Immunoblt Result Comment: (NOTE) IgG antibodies against Bordetella FHA and PT detected. The Immunoblot banding pattern suggests a recent infection or vaccination with Bordetella pertussis. PT100 (Pertussis toxin 100 IU/ml) detects high concentrations of pertussis toxin-specific antibodies associated with recent infections/vaccinations. PT (Pertussis toxin) is specific to Bordetella pertussis. FHA (Filamentous hemagglutinin) is an antigen common to multiple species of Bordetella. Performed by [facility], [address] [place] [address] www.[email or web address], Romaine Kovacs MD, Lab. Director LAB BPGPT1 B. Positive pert IgG PT100 LAB BPGPT Positive B.pert IgG Immuno PT LAB BPGFHA Positive B.pert IgG Immun FHA Performed By: #### CBCDIF, CMP, LIPB #### [place] [phone] #### BPPABS, BPAG, BPAA #### [address] [address] [phone] B.PERT IGA IMMUNOBLT Collected: 04/11/2017 Status: F Source: [place] 10:40 AM [facility] REPOSITORY TYPE CODE TESTS RESULT OUT OF RANGE REFERENCE UNITS LAB BPAAT Negative Abnormal B.pert IgA SEE NOTE Alert Immunoblt Result Comment: (NOTE) IgA antibodies against Bordetella FHA and PT suggesting recent infection or vaccination with B. pertussis. PT (Pertussis toxin) is specific to Bordetella pertussis. FHA (Filamentous hemagglutinin) is an antigen common to multiple species of Bordetella. Performed by [facility], [address] [place] [id number] www.[email or web address], Romaine Kovacs MD, Lab. Director LAB BPAPT Positive B.pert IgA Immuno PT LAB BPAFHA Positive B.pert IgA Immun FHA Performed By: #### CBCDIF, CMP, LIPB #### [place] [address] #### BPPABS, BPAG, BPAA #### [address] [address] [phone] BORDETELLA PERTUSSIS Collected: 04/11/2017 Status: F Source: [place] 10:36 AM [facility] REPOSITORY TYPE CODE TESTS RESULT OUT OF REFERENCE UNITS RANGE LAB BORDET Bordetella Negative for Pertussis Bordetella pertussis by NAAT Performed By: #### BORAMP #### [address] [place] [address] PROGRESS Observed: 04/11/2017 Status: COMPLETED Source: [place] 9:19 AM [facility] REPOSITORY HNO ID: [id number] Author: Jany Abbasi Service: (none) Author Type: Physician Type: Progress Notes Filed: 04/11/2017 1:24 PM Note Text: Reason for Visit Patient presents with: Establish Care Yanick Rowell is a 51 year old male who presents here today for Above Complaints.. Health Maintenance LIPID SCREEN DIABETES SCREEN PROSTATE CANCER SCREENING DISCUSSION COLORECTAL CANCER SCREENING,SEE MODIFIER HPI He has been in the ER 2 times and the urgent care 4 times in the past 6 weeks, he coughs so hard hepasses out, He passed out 7 times in front of his . His symptoms are chest pain and cough, they did put him on codiene and tylenol but he still has cough They had been in [facility] for a week, a couple days after he started coughing like this. No fever or chills, some nasal drainage, he feels fine until he stops coughing. Appetite is good, no weight loss, he had to take off from work but currently he worked the past 1week No problem-specific Assessment AND Plan notes found for this encounter. No past medical history on file. No past surgical history on file. No family history on file. Social History Substance Use Topics - Smoking status: Never Smoker - Smokeless tobacco: Never Used - Alcohol use Not on file Past medical history, appointments, medications, allergies reviewed. Pertinent Lab/Diagnostic Studies are reviewed and discussed today Current Outpatient Prescriptions: - albuterol HFA (PROAIR HFA) 90 mcg/actuation inhaler - benzonatate (TESSALON PERLE) 100 mg capsule - predniSONE (DELTASONE) 20 mg tablet - Nyywchmprxyplkt-Elxsbkdua-JX (BROMFED DM) 2-30-10 mg/5 mL syrup - fluticasone (FLONASE) 50 mcg/actuation nasal spray Review of Systems CONSTITUTIONAL: No fevers, chills night sweats, unintended weight loss CARDIOVASCULAR: No chest pain, dyspnea, palpitations, orthopnea, PND, ankle edema. PULM: No dyspnea, unexplained cough. GI: No dysphagia/odynophagia, problematic reflux, constipation, diarrhea, changes in stool habits, hematochezia, melena. : No new urinary complaints, including dysuria, gross hematuria or pyuria. NEURO: No new balance problems, peripheral weakness/paresthesias or numbness of concern. Physical Exam BP 117/80 Pulse 78 Temp 36.7 ?C (98.1 ?F) Resp 12 Ht 177.8 cm (5' 10) Wt 103 kg (227 lb) SpO2 97% BMI 32.57 kg/m2 General appearance: Well appearing, alert, in no acute distress, well nourished. Skin: Skin color, texture, turgor normal, no suspicious rashes or lesions Head: Normocephalic, no masses, lesions, tenderness or abnormalities Throat is injected Eyes: Anicteric sclera. Pupils are equally round and reactive to light. Extraocular movements are intact. Lungs: Lungs clear to auscultation. No wheezing, rhonchi, rales Heart: RRR without murmur, gallop, or rubs. Extremities: No deformities, edema, skin discoloration, clubbing or cyanosis. Good capillary refill. ASSESSMENT/PLAN: 1. Annual physical exam - ICD9: V70.0, ICD10: Z00.00 (primary diagnosis) - Recommended regular aerobic exercise. - Follow up for annual exam in one year. - LIPID PANEL BASIC 2. Cough - ICD9: 786.2, ICD10: R05 - BORDETELLA PERTUSSIS BY NAAT - PERTUSSIS AB IGG,IGM,IGA - CONSULT TO PULM/CRITICAL CARE - CBC + DIFF - COMP METABOLIC PANEL 3. Whooping cough - ICD9: 033.9, ICD10: A37.90 - BLOOD CULTURE DRAW MD JANY BERRY MD [facility] OPEN ACCESS QUESTIONNAIRE 1. Are you or could you be ? NA 2. Are you currently having any stomach/gastrointestinal issues at this time such as constipation, diarrhea, abdominal pain, rectal bleeding etc? Bloating after eating 3. Do you have an implanted device such as a defibrillator, pacemaker, Cardiac Stent or deep brain stimulation device? No 4. Do you have any new or past cardiac (heart) or pulmonary (lung) issues? Left lung nodule 5. Is the patient's BMI 40 or greater? No:Body mass index is 32.57 kg/(m2).. Last Wt 03/03/18 : 103 kg (227 lb) Last Ht 04/11/17 : 177.8 cm (5' 10) 6. Have you had difficulty with prior sedations or complications with other procedures? No 7. Have you had difficulty with anesthesia previously re: ? Difficult intubation? No ? Other difficulty or allergic reaction to anesthesia other than post op N/V? No 8. Do you currently use oxygen or a breathing machine at night? No 9. Do you take any narcotics, depression or anti-Anxiety medications or 3 or more prescription drugs on a daily basis? No 10. Do you use any illegal or recreational drugs? No 11. Have you been hospitalized in the past 6 weeks? No 12. Are you on dialysis or have Chronic Kidney Disease? No 13. Have you been diagnosed with chronic liver disease such as hepatitis or cirrhosis? No 14. Do you have a seizure disorder? No 15. Do you have difficulty swallowing? Difficulty swallowing at times, feels like food gets stuck 16. Do you have ulcerative colitis or Crohn's disease? No 17. Do you take any Blood thinners, including Aspirin or fish oil? No 18. Do you have any blood disorders (re:hemophiliac)? No 19. Are you Diabetic? No 20. Any other important health information we should be made aware of prior to your colonoscopy? No Checklist: Prior to closing the encounter: ? Complete questionnaire: Yes ? Confirm Prep order has been Ordered/Pended: Yes. ? Patient's procedure could be delayed if not given the script for the prep. Please ensure the prep is escripted to pharmacy or printed. Instructions for the prep will print upon filing or pending this smartset. ? Please send all open access questionnaires to [facility] Sched Pool #[id number] CNOV Observed: 04/11/2017 Status: COMPLETED Source: [place] 9:00 AM [facility] REPOSITORY Office Visit (INTMWS) YANICK ROWELL ([id number]) 1965 M Date Time Provider Department 04/11/17 9:00 AM JANY ABBASI During your visit today, we recorded the following information about you: Temperature Pulse Respiration Blood pressure 98.1 degrees 78/minute 12/minute 117/80 Weight Height 103 kg 1.778 m JANY ABBASI MD 04/11/2017 1:24 PM Signed Reason for Visit Patient presents with: Establish Care Yanick Rowell is a 51 year old male who presents here today for Above Complaints.. Health Maintenance LIPID SCREEN DIABETES SCREEN PROSTATE CANCER SCREENING DISCUSSION COLORECTAL CANCER SCREENING,SEE MODIFIER HPI He has been in the ER 2 times and the urgent care 4 times in the past 6 weeks, he coughs so hard hepasses out, He passed out 7 times in front of his . His symptoms are chest pain and cough, they did put him on codiene and tylenol but he still has cough They had been in [facility] a week, a couple days after he started coughing like this. No fever or chills, some nasal drainage, he feels fine until he stops coughing. Appetite is good, no weight loss, he had to take off from work but currently he worked the past 1week No problem-specific Assessment ANDamp; Plan notes found for this encounter. No past medical history on file. No past surgical history on file. No family history on file. Social History Substance Use Topics - Smoking status: Never Smoker - Smokeless tobacco: Never Used - Alcohol use Not on file Past medical history, appointments, medications, allergies reviewed. Pertinent Lab/Diagnostic Studies are reviewed and discussed today Current Outpatient Prescriptions: - albuterol HFA (PROAIR HFA) 90 mcg/actuation inhaler - benzonatate (TESSALON PERLE) 100 mg capsule - predniSONE (DELTASONE) 20 mg tablet - Hjjrgheaywoihrh-Qqcdjkprl-HJ (BROMFED DM) 2-30-10 mg/5 mL syrup - fluticasone (FLONASE) 50 mcg/actuation nasal spray Review of Systems CONSTITUTIONAL: No fevers, chills night sweats, unintended weight loss CARDIOVASCULAR: No chest pain, dyspnea, palpitations, orthopnea, PND, ankle edema. PULM: No dyspnea, unexplained cough. GI: No dysphagia/odynophagia, problematic reflux, constipation, diarrhea, changes in stool habits, hematochezia, melena. : No new urinary complaints, including dysuria, gross hematuria or pyuria. NEURO: No new balance problems, peripheral weakness/paresthesias or numbness of concern. Physical Exam BP 117/80 Pulse 78 Temp 36.7 ?C (98.1 ?F) Resp 12 Ht 177.8 cm (5' 10ANDquot;) Wt 103 kg (227 lb) SpO2 97% BMI 32.57 kg/m2 General appearance: Well appearing, alert, in no acute distress, well nourished. Skin: Skin color, texture, turgor normal, no suspicious rashes or lesions Head: Normocephalic, no masses, lesions, tenderness or abnormalities Throat is injected Eyes: Anicteric sclera. Pupils are equally round and reactive to light. Extraocular movements are intact. Lungs: Lungs clear to auscultation. No wheezing, rhonchi, rales Heart: RRR without murmur, gallop, or rubs. Extremities: No deformities, edema, skin discoloration, clubbing or cyanosis. Good capillary refill. ASSESSMENT/PLAN: 1. Annual physical exam - ICD9: V70.0, ICD10: Z00.00 (primary diagnosis) - Recommended regular aerobic exercise. - Follow up for annual exam in one year. - LIPID PANEL BASIC 2. Cough - ICD9: 786.2, ICD10: R05 - BORDETELLA PERTUSSIS BY NAAT - PERTUSSIS AB IGG,IGM,IGA - CONSULT TO PULM/CRITICAL CARE - CBC + DIFF - COMP METABOLIC PANEL 3. Whooping cough - ICD9: 033.9, ICD10: A37.90 - BLOOD CULTURE DRAW MD JANY BERRY MD [facility] OPEN ACCESS QUESTIONNAIRE 1. Are you or could you be ? NA 2. Are you currently having any stomach/gastrointestinal issues at this time such as constipation, diarrhea, abdominal pain, rectal bleeding etc? Bloating after eating 3. Do you have an implanted device such as a defibrillator, pacemaker, Cardiac Stent or deep brain stimulation device? No 4. Do you have any new or past cardiac (heart) or pulmonary (lung) issues? Left lung nodule 5. Is the patient's BMI 40 or greater? No:Body mass index is 32.57 kg/(m2).. Last Wt 04/11/17 : 103 kg (227 lb) Last Ht 04/11/17 : 177.8 cm (5' 10ANDquot;) 6. Have you had difficulty with prior sedations or complications with other procedures? No 7. Have you had difficulty with anesthesia previously re: ? Difficult intubation? No ? Other difficulty or allergic reaction to anesthesia other than post op N/V? No 8. Do you currently use oxygen or a breathing machine at night? No 9. Do you take any narcotics, depression or anti-Anxiety medications or 3 or more prescription drugs on a daily basis? No 10. Do you use any illegal or recreational drugs? No 11. Have you been hospitalized in the past 6 weeks? No 12. Are you on dialysis or have Chronic Kidney Disease? No 13. Have you been diagnosed with chronic liver disease such as hepatitis or cirrhosis? No 14. Do you have a seizure disorder? No 15. Do you have difficulty swallowing? Difficulty swallowing at times, feels like food gets ANDquot;stuckANDquot; 16. Do you have ulcerative colitis or Crohn's disease? No 17. Do you take any Blood thinners, including Aspirin or fish oil? No 18. Do you have any blood disorders (re:hemophiliac)? No 19. Are you Diabetic? No 20. Any other important health information we should be made aware of prior to your colonoscopy? No Checklist: Prior to closing the encounter: ? Complete questionnaire: Yes ? Confirm Prep order has been Ordered/Pended: Yes. ? Patient's procedure could be delayed if not given the script for the prep. Please ensure the prep is escripted to pharmacy or printed. Instructions for the prep will print upon filing or pending this smartset. ? Please send all open access questionnaires to [facility] Sched Pool #[id number] Prema Lyons Ma 04/11/2017 9:20 AM Signed Health Information For Patients and the Community How to Prepare for Your Colonoscopy Using Golytely, Nulytely, Trilyte or Colyte Preparations IMPORTANT - Please Read These Instructions at Least 2 Weeks Before Your Colonoscopy Angulo Instructions: ?Your bowel must be empty so that your doctor can clearly view your colon. Follow all of the instructions in this handout EXACTLY as they are written. If you do NOT follow the directions for when to start drinking the bowel preparation (see next page), your colonoscopy WILL be cancelled. ?Do NOT eat any solid food the ENTIRE day before your colonoscopy. ?Buy your bowel preparation at least 5 days before your colonoscopy. ?Do NOT mix the solution until the day before your colonoscopy. Designated Bath Tester on the Day of Your Exam A responsible family member or friend MUST come with you to your colonoscopy and REMAIN in the endoscopy area until you are discharged! You are NOT ALLOWED to drive, take a taxi or bus, or leave the Endoscopy Center ALONE. If you do not have a responsible driver license agent (family member or friend) with you to take you home, your exam cannot be done with sedation and will be cancelled. Medications Some of the medicines you take may need to be stopped or adjusted before your colonoscopy. You MUST call the doctor who ordered any of the following medicines at least 2 weeks before your colonoscopy. ?Blood thinners -- such as Coumadin? (warfarin), Plavix? (clopidogrel), Ticlid? (ticlopidine hydrochloride), Agrylin? (anagrelide), Xarelto? (Rivaroxaban), Pradaxa? (Dabigatran), Eliquis? (Apixaban), and Effient? (Prasugrel). ?Insulin or diabetes pills. Please call the doctor that monitors your glucose levels. Your insulin dosage may need to be adjusted due to the diet restrictions required with this bowel preparation. (Please bring your diabetes medicines with you on the day of your procedure.) If you take aspirin, take it and ALL other medications prescribed by your doctor. On the day of your colonoscopy, take your medications with a sip of water. Revised 03/2016 1 Five (5) Days Before Your Colonoscopy ?Do NOT take medicines that stop diarrhea -- such as Imodium?, Kaopectate?, or Pepto Bismol?. ?Do NOT take fiber supplements -- such as Metamucil?, Citrucel?, or Perdiem?. ?Do NOT take products that contain iron -- such as multi-vitamins -- (the label lists what is in the products). ?Do NOT take vitamin E. Buy the prescription bowel preparation solution at your local pharmacy or drugstore pharmacy. Three (3) Days Before Your Colonoscopy Do NOT eat high-fiber foods -- such as popcorn, beans, seeds (flax, sunflower, quinoa), multigrain bread, nuts, salad/vegetables, or fresh and dried fruit. One (1) Day Before Your Colonoscopy Only drink clear liquids the ENTIRE DAY before your colonoscopy. Do NOT eat any solid foods. Drink at least 8 ounces of clear liquids every hour after waking up. The clear liquids you can drink include: ?water, apple, or white grape juice; broth; coffee or tea (without milk or creamer); clear carbonated beverages such as olga sophia or lemon-tulalip soda; Gatorade? or other sports drinks (not red); Bruce-Aid? or other flavored drinks (not red). You may eat plain jello or other gelatins (not red) or popsicles (not red). Do NOT drink alcohol on the day before or the day of the procedure. 2 Revised 03/2016 When to Mix and Drink Your Bowel Prep Follow the instructions on the label. After mixing, place the solution in the refrigerator for a couple of hours before drinking. You may add the flavor packet that came with the bowel preparation. DO NOT add ice, sugar or any flavorings to the solution. Evening Before Your Colonoscopy ?Start drinking the bowel preparation at 6 PM the evening before your colonoscopy. Drink an 8-oz glass of bowel preparation every 10 minutes. You must finish drinking the solution by 9 PM the night before your scheduled procedure. ?You may continue to drink clear liquids only until midnight. Do NOT eat or drink ANYTHING after midnight the night before your procedure or your procedure may be cancelled. This is for your safety and will reduce the risk of having any food or liquid in your stomach move into your lungs (aspiration) during a procedure. If you take aspirin, take it and ALL other prescribed medicines with a sip of water on the day of your colonoscopy. Contact Information: If you are unable to keep your appointment or have any questions about the instructions, please call the facility where the procedure is being performed. Call between the hours of 8:00 AM and 5:00 PM. If you are calling after 5:00 PM, please call Nurse lubrication equipment servicer at [phone]. [facility] [address] [place] [id number] Index # [id number] Revised 03/2016 3 Colonoscopy Procedure Overview Please Read Prior to the Procedure What is a Colonoscopy A colonoscopy is an outpatient procedure in which the inside of the large intestine (colon and rectum) is examined. A colonoscopy is commonly used to evaluate gastrointestinal symptoms, such as rectal and intestinal bleeding, abdominal pain, or changes in bowel habits. Colonoscopies are also performed in individuals without symptoms to check for colorectal polyps or cancer. A screening colonoscopy is recommended for anyone 50 years of age and older, and for anyone with parents, siblings or children with a history of colorectal cancer or polyps. What Happens Before a Colonoscopy To have a successful colonoscopy, your bowel must be empty so that your physician can clearly view the colon. To do this, it is very important to read and follow all of the instructions given to you at least 2 weeks BEFORE your exam. If your bowel is not empty, your colonoscopy will not be successful and may have to be repeated. If you feel nauseated or vomit while taking the bowel preparation, wait 30 minutes before drinking more fluid and start with small sips of solution. Some activity (such as walking) or a few soda crackers may help decrease the nausea you are feeling. If the nausea persists, please contact nurse cone machine feeder at [phone]. You may experience skin irritation around the anus due to the passage of liquid stools. To prevent and treat skin irritation, you should: ?Apply Vaseline? or Desitin? ointment to the skin around the anus before drinking the bowel preparation medications. These products can be purchased at any drugstore. ?Wipe the skin after each bowel movement with disposable wet wipes instead of toilet paper. These are found in the toilet paper area of the store. ?Sit in a bathtub filled with warm water for 10 to 15 minutes after you finish passing a stool; after soaking, blot the skin dry with a soft cloth, apply Vaseline? or Desitin? ointment to the anal area, and place a cotton ball just outside your anus to absorb leaking fluid. What Happens During a Colonoscopy During a colonoscopy, an experienced physician uses a colonoscope (a long, flexible instrument about 1/2 inch in diameter) to view the lining of the colon. The colonoscope is inserted into the rectum and advanced through the large intestine. If necessary during a colonoscopy, small amounts of tissue can be removed for analysis (a biopsy) and polyps can be identified and entirely removed. In many cases, a colonoscopy allows accurate diagnosis and treatment of colorectal problems without the need for a major operation. Revised 03/2016 5 ?You are asked to wear a hospital gown and an IV will be started. ?You are given a pain reliever and a sedative intravenously (in your vein). You will feel relaxed and somewhat drowsy. ?You will lie on your left side, with your knees drawn up towards your chest. ?A small amount of air is used to expand the colon so the physician can see the colon [place]. ?You may feel mild cramping during the procedure. Cramping can be reduced by taking slow, deep breaths. ?The colonoscope is slowly withdrawn while the lining of your bowel is carefully examined. ?The procedure lasts from 30 minutes to 1 hour. What Happens After a Colonoscopy ?You will stay in a recovery room for observation until you are ready for discharge. ?You may feel some cramping or a sensation of having gas, but this quickly passes. ?If sedation has been given, a responsible family member or friend must drive you home. ?Avoid alcohol, driving, and operating machinery for 24 hours following the procedure. ?Unless otherwise instructed, you may immediately return to your normal diet. We recommend you wait until the day after your procedure to resume normal activities. ?If polyps were removed or a biopsy was taken, the physician performing your colonoscopy will tell you when it is safe to resume taking your blood thinners. ?If a biopsy was taken or a polyp was removed, you may notice a little amount of rectal bleeding for 1 to 2 days after the procedure. If you have a large amount of rectal bleeding, high or persistent fevers, or severe abdominal pain within the next 2 weeks, please go to your local emergency room and call the physician who performed your exam. 6 Revised 03/2016 ?Copyright 6490-6543 The [facility]. All rights reserved. Revised 03/2016 Liset Colby 04/13/2017 8:14 AM Signed Scheduled patient for colonoscopy consultation with Liv Heller on 04/20/2017 Liset Colby Referring Provider: JANY ABBASI [[id number]] Allergies As of Date: 04/11/2017 (No Known Allergies) Date Reviewed: 04/11/2017 Reviewed by: Prema Lyons Ma - Fully Assessed Reason for Visit: Establish Care [42] Primary Visit Diagnosis:Annual physical exam [Z00.00] Other Visit Diagnoses:Cough [R05] Whooping cough [A37.90] Atypical mole [D22.9] Order(s):BORDETELLA PERTUSSIS BY NAAT [SQBORAMP] Order #: [id number]. #:[id number] PERTUSSIS AB IGG,IGM,IGA [SQBPPABS] Order #: [id number] FUTURE CONSULT TO PULM/CRITICAL CARE [19990418] Order #: [id number]: 1 BLOOD CULTURE DRAW [SQBLCUL] Order #: [id number] FUTURE azithromycin (ZITHROMAX) 250 mg tablet2 tablets on day 1, and then one tablet for 4 daysDisp: 6 tabletRfl: 0 CBC + DIFF [SQCBCDIF] Order #: [id number] FUTURE COMP METABOLIC PANEL [SQCMP] Order #: [id number] FUTURE LIPID PANEL BASIC [SQLIPB] Order #: [id number] FUTURE CONSULT TO DERMATOLOGY [900] Order #: [id number]: 1 Prescriptions as of 04/11/2017 Sig: ALBUTEROL SULFATE HFA 90 MCG/* Inhale 2 Puffs as instructed * AZITHROMYCIN 250 MG TABLET 2 tablets on day 1, and then * BENZONATATE 100 MG CAPSULE Take 1-2 capsules by mouth th* PREDNISONE 20 MG TABLET Prednisone 40 mg (2-20mg tabl* BROMPHENIRAMINE-PSEUDOEPHEDRI* Take 5 mL by mouth four times* FLUTICASONE 50 MCG/ACTUATION * Use 2 Sprays in each nostril * Medication notes this encounter BENZONATATE 100 MG CAPSULE >> Prema Lyons Ma 04/11/2017 9:09 AM >> PREMA LYONS MA Apr 11, 2017 9:09 AM D/c Problem List As Of Date: 04/11/2017 (None) Other instructions from your clinician: Health Information For Patients and the Community How to Prepare for Your Colonoscopy Using Golytely, Nulytely, Trilyte or Colyte Preparations IMPORTANT - Please Read These Instructions at Least 2 Weeks Before Your Colonoscopy Angulo Instructions: ?Your bowel must be empty so that your doctor can clearly view your colon. Follow all of the instructions in this handout EXACTLY as they are written. If you do NOT follow the directions for when to start drinking the bowel preparation (see next page), your colonoscopy WILL be cancelled. ?Do NOT eat any solid food the ENTIRE day before your colonoscopy. ?Buy your bowel preparation at least 5 days before your colonoscopy. ?Do NOT mix the solution until the day before your colonoscopy. Designated Bath Tester on the Day of Your Exam A responsible family member or friend MUST come with you to your colonoscopy and REMAIN in the endoscopy area until you are discharged! You are NOT ALLOWED to drive, take a taxi or bus, or leave the Endoscopy Center ALONE. If you do not have a responsible driver license agent (family member or friend) with you to take you home, your exam cannot be done with sedation and will be cancelled. Medications Some of the medicines you take may need to be stopped or adjusted before your colonoscopy. You MUST call the doctor who ordered any of the following medicines at least 2 weeks before your colonoscopy. ?Blood thinners -- such as Coumadin? (warfarin), Plavix? (clopidogrel), Ticlid? (ticlopidine hydrochloride), Agrylin? (anagrelide), Xarelto? (Rivaroxaban), Pradaxa? (Dabigatran), Eliquis? (Apixaban), and Effient? (Prasugrel). ?Insulin or diabetes pills. Please call the doctor that monitors your glucose levels. Your insulin dosage may need to be adjusted due to the diet restrictions required with this bowel preparation. (Please bring your diabetes medicines with you on the day of your procedure.) If you take aspirin, take it and ALL other medications prescribed by your doctor. On the day of your colonoscopy, take your medications with a sip of water. Revised 03/2016 1 Five (5) Days Before Your Colonoscopy ?Do NOT take medicines that stop diarrhea -- such as Imodium?, Kaopectate?, or Pepto Bismol?. ?Do NOT take fiber supplements -- such as Metamucil?, Citrucel?, or Perdiem?. ?Do NOT take products that contain iron -- such as multi- vitamins -- (the label lists what is in the products). ?Do NOT take vitamin E. Buy the prescription bowel preparation solution at your local pharmacy or drugstore pharmacy. Three (3) Days Before Your Colonoscopy Do NOT eat high-fiber foods -- such as popcorn, beans, seeds (flax, sunflower, quinoa), multigrain bread, nuts, salad/vegetables, or fresh and dried fruit. One (1) Day Before Your Colonoscopy Only drink clear liquids the ENTIRE DAY before your colonoscopy. Do NOT eat any solid foods. Drink at least 8 ounces of clear liquids every hour after waking up. The clear liquids you can drink include: ?water, apple, or white grape juice; broth; coffee or tea (without milk or creamer); clear carbonated beverages such as olga sophia or lemon-tulalip soda; Gatorade? or other sports drinks (not red); Bruce-Aid? or other flavored drinks (not red). You may eat plain jello or other gelatins (not red) or popsicles (not red). Do NOT drink alcohol on the day before or the day of the procedure. 2 Revised 03/2016 When to Mix and Drink Your Bowel Prep Follow the instructions on the label. After mixing, place the solution in the refrigerator for a couple of hours before drinking. You may add the flavor packet that came with the bowel preparation. DO NOT add ice, sugar or any flavorings to the solution. Evening Before Your Colonoscopy ?Start drinking the bowel preparation at 6 PM the evening before your colonoscopy. Drink an 8-oz glass of bowel preparation every 10 minutes. You must finish drinking the solution by 9 PM the night before your scheduled procedure. ?You may continue to drink clear liquids only until midnight. Do NOT eat or drink ANYTHING after midnight the night before your procedure or your procedure may be cancelled. This is for your safety and will reduce the risk of having any food or liquid in your stomach move into your lungs (aspiration) during a procedure. If you take aspirin, take it and ALL other prescribed medicines with a sip of water on the day of your colonoscopy. Contact Information: If you are unable to keep your appointment or have any questions about the instructions, please call the facility where the procedure is being performed. Call between the hours of 8:00 AM and 5:00 PM. If you are calling after 5:00 PM, please call Nurse lubrication equipment servicer at [phone]. [facility] [address] [place] [id number] Index # [id number] Revised 03/2016 3 Colonoscopy Procedure Overview Please Read Prior to the Procedure What is a Colonoscopy A colonoscopy is an outpatient procedure in which the inside of the large intestine (colon and rectum) is examined. A colonoscopy is commonly used to evaluate gastrointestinal symptoms, such as rectal and intestinal bleeding, abdominal pain, or changes in bowel habits. Colonoscopies are also performed in individuals without symptoms to check for colorectal polyps or cancer. A screening colonoscopy is recommended for anyone 50 years of age and older, and for anyone with parents, siblings or children with a history of colorectal cancer or polyps. What Happens Before a Colonoscopy To have a successful colonoscopy, your bowel must be empty so that your physician can clearly view the colon. To do this, it is very important to read and follow all of the instructions given to you at least 2 weeks BEFORE your exam. If your bowel is not empty, your colonoscopy will not be successful and may have to be repeated. If you feel nauseated or vomit while taking the bowel preparation, wait 30 minutes before drinking more fluid and start with small sips of solution. Some activity (such as walking) or a few soda crackers may help decrease the nausea you are feeling. If the nausea persists, please contact nurse cone machine feeder at [phone]. You may experience skin irritation around the anus due to the passage of liquid stools. To prevent and treat skin irritation, you should: ?Apply Vaseline? or Desitin? ointment to the skin around the anus before drinking the bowel preparation medications. These products can be purchased at any drugstore. ?Wipe the skin after each bowel movement with disposable wet wipes instead of toilet paper. These are found in the toilet paper area of the store. ?Sit in a bathtub filled with warm water for 10 to 15 minutes after you finish passing a stool; after soaking, blot the skin dry with a soft cloth, apply Vaseline? or Desitin? ointment to the anal area, and place a cotton ball just outside your anus to absorb leaking fluid. What Happens During a Colonoscopy During a colonoscopy, an experienced physician uses a colonoscope (a long, flexible instrument about 1/2 inch in diameter) to view the lining of the colon. The colonoscope is inserted into the rectum and advanced through the large intestine. If necessary during a colonoscopy, small amounts of tissue can be removed for analysis (a biopsy) and polyps can be identified and entirely removed. In many cases, a colonoscopy allows accurate diagnosis and treatment of colorectal problems without the need for a major operation. Revised 03/2016 5 ?You are asked to wear a hospital gown and an IV will be started. ?You are given a pain reliever and a sedative intravenously (in your vein). You will feel relaxed and somewhat drowsy. ?You will lie on your left side, with your knees drawn up towards your chest. ?A small amount of air is used to expand the colon so the physician can see the colon [place]. ?You may feel mild cramping during the procedure. Cramping can be reduced by taking slow, deep breaths. ?The colonoscope is slowly withdrawn while the lining of your bowel is carefully examined. ?The procedure lasts from 30 minutes to 1 hour. What Happens After a Colonoscopy ?You will stay in a recovery room for observation until you are ready for discharge. ?You may feel some cramping or a sensation of having gas, but this quickly passes. ?If sedation has been given, a responsible family member or friend must drive you home. ?Avoid alcohol, driving, and operating machinery for 24 hours following the procedure. ?Unless otherwise instructed, you may immediately return to your normal diet. We recommend you wait until the day after your procedure to resume normal activities. ?If polyps were removed or a biopsy was taken, the physician performing your colonoscopy will tell you when it is safe to resume taking your blood thinners. ?If a biopsy was taken or a polyp was removed, you may notice a little amount of rectal bleeding for 1 to 2 days after the procedure. If you have a large amount of rectal bleeding, high or persistent fevers, or severe abdominal pain within the next 2 weeks, please go to your local emergency room and call the physician who performed your exam. 6 Revised 03/2016 ?Copyright 2519-5710 [facility]. All rights reserved. Revised 03/2016 Prescriptions ordered this encounter Disp Refills Start End AZITHROMYCIN 250 MG TABLET 6 ta* 0 04/11/2017 Si tablets on day 1, and then one tablet for 4 days Follow-up and Disposition History Recorded Encounter Status:Closed by JANY ABBASI MD on 04/11/17 CBC Collected: 03/30/2017 Status: F Source: [facility] 10:20 PM [facility] REPOSITORY TYPE CODE TESTS RESULT OUT OF REFERENCE UNITS RANGE LAB WBC(LOINC) 4.60-10.80 10 3/mcL WBC 7.60 LAB RBCCT(LOINC 4.04-6.13 10 6/mcL ) RBC 5.02 LAB HGB(LOINC) 14.0-18.0 G/dL Hgb 15.3 LAB HCT(LOINC) 42.0-52.0 % Hct 45.0 LAB MCV(LOINC) 80.0-94.0 fL MCV 89.6 LAB MCH(LOINC) 27.0-31.2 pg MCH 30.5 LAB MCHC(LOINC) 31.8-35.4 G/dL MCHC 34.0 LAB RDW(LOINC) 11.5-14.5 % RDW 13.4 LAB PLT(LOINC) 130-400 10 3/mcL Platelet 165 LAB MPV(LOINC) 7.4-10.4 fL MPV 8.7 Performed By: #### CBC, ADIFF, ANEU, TROP, BMP, GFR #### [address] [address] .AUTO DIFF Collected: 03/30/2017 Status: F Source: [facility] 10:20 PM [facility] REPOSITORY TYPE CODE TESTS RESULT OUT OF REFERENCE UNITS RANGE LAB SUSAN(LOINC) 37.0-80.0 % Neutrophil % 55.9 LAB LYM(LOINC) 10.0-50.0 % Lymphocyte % 35.0 LAB MON(LOINC) 1.7-13.0 % Monocyte % 7.7 LAB EO(LOINC) 0.0-7.0 % Eosinophil % 0.8 LAB BAS(LOINC) 0.0-2.5 % Basophil % 0.6 LAB ABLYM(LOIN 0.77-3.85 10 3/mcL C) Lymphocyte, 2.70 Absolute LAB SANDRA(LOINC 0.15-1.00 10 3/mcL ) Monocyte, 0.60 Absolute LAB AEOS(LOINC 0.00-0.40 10 3/mcL ) Eosinophil, 0.10 Absolute LAB ABAS(LOINC 0.00-0.19 10 3/mcL ) Basophil, 0.00 Absolute Performed By: #### CBC, ADIFF, ANEU, TROP, BMP, GFR #### [address] [address] .NEUABS Collected: 03/30/2017 Status: F Source: [facility] 10:20 PM [facility] REPOSITORY TYPE CODE TESTS RESULT OUT OF REFERENCE UNITS RANGE LAB ANEU(LOINC) 2.85-6.16 10 3/mcL Neutrophil, 4.30 Absolute Performed By: #### CBC, ADIFF, ANEU, TROP, BMP, GFR #### [address] [address] TROP Collected: 03/30/2017 Status: F Source: [facility] 10:20 PM [facility] REPOSITORY TYPE CODE TESTS RESULT OUT OF REFERENCE UNITS RANGE LAB TROP(LOINC) 0.00-0.30 ng/mL Troponin <0.30 Result Comment: Below measuring range >=0.30 Consistent with cardiac damage, increased clinical risk and possibility of myocardial infarction. Serial measurements, clinical history, appropriate symptoms and/or ECG changes may help assess possibility of ID. *Other non-acute coronary syndrome conditions such as CHF, myocarditis, pulmonary emboli, sepsis and cardiac surgery could result in myocardial damage and increased troponin levels. Performed By: #### CBC, ADIFF, ANEU, TROP, BMP, GFR #### [address] [address] BMP Collected: 03/30/2017 Status: F Source: [facility] 10:20 PM [facility] REPOSITORY TYPE CODE TESTS RESULT OUT OF REFERENCE UNITS RANGE LAB 1547-9 70-105 mg/dL GLUCOSE High 113 LAB NA(LOINC) 136-146 mEq/L Sodium Level 143 LAB K(LOINC) 3.5-5.1 mEq/L Potassium Level 4.0 LAB CL(LOINC) 98-107 mEq/L Chloride High 110 LAB CO2(LOINC) 22-29 mEq/L Low CO2 21 LAB EBAL(LOINC mEq/L ) Electrolyte Balance 12.0 LAB BUN(LOINC) 7.0-18.0 mg/dL BUN 13.5 LAB CRE(LOINC) 0.6-1.2 mg/dL Creatinine Lvl (s) 1.1 LAB BC(LOINC) 7-27 ratio BUN/Creatinine 12 Ratio LAB CA(LOINC) 8.4-10.2 mg/dL Calcium Lvl 9.1 Performed By: #### CBC, ADIFF, ANEU, TROP, BMP, GFR #### [address] [address] .GFR Collected: 03/30/2017 Status: F Source: [employer] 10:20 PM [facility] REPOSITORY TYPE CODE TESTS RESULT OUT OF REFERENCE UNITS RANGE LAB GFRAA(LOINC ml/min/1.73 ) sqm GFR 84 [place] Result Comment: GFR Population mean for , Non- Americans Ages 20-29 = 116 mL/min/1.73 sq.m. Ages 30-39 = 107 mL/min/1.73 sq.m. Ages 40-49 = 99 mL/min/1.73 sq.m. Ages 50-59 = 93 mL/min/1.73 sq.m. Ages 60-69 = 85 mL/min/1.73 sq.m. Ages 70+ = 75 mL/min/1.73 sq.m. Chronic Kidney Disease: Less than 60 mL/min/1.73 square meters End Stage Renal Disease: Less than 15 mL/min/1.73 square meters LAB GFRNO(LOINC) ml/min/1.73sqm GFR Non- >60 Result Comment: GFR Population mean for , Non- Americans Ages 20-29 = 116 mL/min/1.73 sq.m. Ages 30-39 = 107 mL/min/1.73 sq.m. Ages 40-49 = 99 mL/min/1.73 sq.m. Ages 50-59 = 93 mL/min/1.73 sq.m. Ages 60-69 = 85 mL/min/1.73 sq.m. Ages 70+ = 75 mL/min/1.73 sq.m. Chronic Kidney Disease: Less than 60 mL/min/1.73 square meters End Stage Renal Disease: Less than 15 mL/min/1.73 square meters Performed By: #### CBC, ADIFF, ANEU, TROP, BMP, GFR #### Darrel [address] [address] XR CHEST 1 VIEW Observed: 03/30/2017 Status: F Source: [employer] 10:03 PM [facility] REPOSITORY ORIGINAL XR CHEST 1 VIEW PORTABLE UPRIGHT AP TIME: 10:00 PM Clinical Statement: syncopal episode Comparison: None Findings: Heart size is normal. No focal consolidation, vascular congestion, pleural effusion, or pneumothorax. No acute osseous abnormality. IMPRESSION: No acute radiographic finding. I have personally reviewed the images of this examination and agree with the resident's findings and interpretation. Interpreted By: Dontrell Rojas MD Preliminary Report By: Vicenta Toribio DO Electronically Signed By: Dontrell Rojas MD Dictated Date: 03/30/2017 10:17:20 PM Prelim Date: 03/30/2017 10:17:45 PM Sign Date: 03/30/2017 10:37:20 PM 12 LEAD ELECTROCARDIOGRAM Observed: 03/23/2017 Status: F Source: [facility] 1:26 PM [facility] REPOSITORY [facility] Cardiovascular Services [address] [place] [address] 12 Lead EKG 03/21/171953 MR#: [id number] Acct: [id number] Name: YANICK ROWELL Rep #: [id number] : 1965 51 From: Adi Guadarrama MD Attending Dr: Status: DEP ER Ordering Dr: Dontrell Skelton MD Date: 03/21/17 Location: ED Sex: M C Admitted: Test Reason : COUGH Blood Pressure : / mmHG Vent. Rate : 079 BPM Atrial Rate : 079 BPM P-R Int : 148 ms QRS Dur : 086 ms QT Int : 370 ms P-R-T Axes : 026 004 017 degrees QTc Int : 424 ms Normal sinus rhythm Normal ECG Confirmed by CHIARA BROWNLEE, ADI ([id number]), newspaper editor managing KRISHNA ONOFRE ([id number]) on 03/23/2017 1:26:28 PM Referred By: GRAYSON Confirmed By:ADI GUADARRAMA MD 03/23/17 1326 Date Adi Guadarrama MD CC: No Primary Care Physician; Dontrell Skelton MD Signed EMERGENCY DEPARTMENT Observed: 03/21/2017 Status: F Source: [facility] SUMMARY 11:36 PM [facility] REPOSITORY [facility] Medical Records Department [address] [place] [address] Emergency Department Summary 03/21/171936 MR#: [id number] Acct: [id number] Name: YANICK ROWELL Rep #: [id number] : 1965 51 From: Dontrell Skelton MD PCP: Care Physician, No Primary Status: DEP ER - ER Visit Summary Date of Service: 03/21/17 Chief Complaint: Cough, syncope History of Present Illness: The patient is a 51 M resents to the emergency department with 3 weeks of cough. The patient states that the symptoms have been progressive. He has been to the urgent care 3 separate times. He has been diagnosed with bronchitis. He was given Augmentin, prednisone, Tessalon Perles, and a cough suppressant. Feels like he is not improving. He denies any fevers or chills. He does feel mildly short of breath and has had intermittent chest pain with coughing. He denies any history of pulmonary embolus. He has had no fevers or night sweats. He states that today, he had a coughing fit and then passed out. It was witnessed by his . There was no seizure activity. He states that this happened 3 weeks ago with the same symptoms. Physical Examination: Vital signs reviewed General: Well-nourished, well-developed Head: Normocephalic, atraumatic Eyes: Pupils equal and reactive, extraocular muscles intact Neck, supple, no lymphadenopathy Heart: Regular rate and rhythm Respiratory: No distress, clear bilaterally Abdomen: Soft, nontender, nondistended, no peritoneal signs Back: Nontender Extremities: Nontender, no edema, no cords Skin: Normal color no rash Neuro: Alert and oriented, no focal or lateralizing deficits Test Results: KG shows no acute ischemic change. There is no prolonged QT. Screening labs are unremarkable. CTA shows no evidence of pulmonary embolus. There is a small pleural nodule. Emergency Department Course and Treatment: Patient has had cough syncope. With his cough and intermittent chest pain along with his intermittent shortness of breath I did feel that ruling out pulmonary embolus would be the most important. His EKG was unremarkable. There is no evidence of arrhythmia that would cause a syncopal episode. His CTA shows a small lung nodule, but no other acute abnormalities. His labs are unremarkable. I did discuss options with the patient. He wants to do outpatient therapy and I feel this is reasonable. I do feel the most important thing will be stopping or at least controlling his cough. The patient will placed on Lortab elixir. I did senior genetic counselor him that if he has any worsening symptoms or change in symptoms to return to the emergency department. Patient will be discharged home. Treatment Plan: [] Disposition: Discharge Impression:. Cough syncope This note was generated with eegoes dictation software. It may contain incorrect words, spelling, and punctuation that were not noted in review of the chart prior to signing ED Disposition - Plan for ED Patient: Disposition: Home or Assisted Living Chief Complaint: Cough Instructions: ED Cough Chronic Cause Unkn Prescriptions: Hydrocodone/APAP 7.5-325/15Ml [Lortab [Replacement] 7.5-325/15] 10 ml PO Q6H PRN PRN 3 Days #120 ml PRN Reason: Cough Referrals: Care Physician,No Primary [Primary Care Provider] - What to do if you have Problems For any increased pain, shortness of breath, bleeding, nausea or vomiting, chest pain, or any unexpected problems, contact your Primary Care Provider. Call [facility] ([phone]) or report to the closest Emergency Room. Call 911 if necessary. 03/21/17 2336 <Electronically signed by Dontrell Skelton MD> Date Dontrell Skelton MD Cosigner Signature (If Indicated): Date CC: No Primary Care Physician CBC W/DIFF, AUTOMATED Collected: 03/21/2017 Status: F Source: [facility] 7:45 PM [facility] REPOSITORY TYPE CODE TESTS RESULT OUT OF RANGE REFERENCE UNITS LAB L100.1000 4.4-11.0 K/mm3 Normal WBC 8.4 LAB L100.1200 4.6-6.2 M/mm3 Normal RBC 4.68 LAB L100.1300 13.0-16.5 g/dl Normal HGB 14.9 LAB L100.1400 40-54 % Normal HCT 42.3 LAB L100.1500 80-94 fL Normal MCV 90.4 LAB L100.1600 27.0-32.0 pg Normal MCH 31.8 LAB L100.1700 32-36 g/gl Normal MCHC 35.2 LAB L100.1810 11.6-14.6 % Normal RDW CV 12.8 LAB L100.1820 35.1-43.9 fl Normal RDW SD 41.6 LAB L100.1900 150-450 K/mm3 Normal PLT 207 LAB L100.2000 6.2-12.0 fl Normal MPV 10.4 LAB L100.2100 47-70 % Low NEUT% 42.8 LAB L100.2200 19-41 % High LY% 46.4 LAB L100.2300 0-10 % Normal MONO% 8.9 LAB L100.2400 0-5 % Normal EO% 1.3 LAB L100.2500 0-1 % Normal BASO% 0.4 LAB L100.2550 0.0-0.9 % Normal IM GRAN % 0.200 Result Comment: IG% - Immature Granulocytes (promyelocytes, myelocytes and metamyelocytes) > 1% indicates that a LEFT SHIFT is Present. LAB L100.2620 2.0-7.7 X10 3/uL Normal Absolute Neut 3.6 LAB L100.2720 0.83-4.51 X10 3/ul Normal Absolute Lymph 3.89 Performed By: #### L100.0100 #### [facility] [address] [place], [place], [address] COMPREHENSIVE METABOLIC Collected: 03/21/2017 Status: F [facility] PM [facility] REPOSITORY Order Comment: 'TROP' Serial specimen #1, #2, #3, or #4: 1 TYPE CODE TESTS RESULT OUT OF RANGE REFERENCE UNITS LAB L501.0100 74-106 mg/dL High GLU 107 Result Comment: Fasting Glucose result from 100 to 125 mg/dL suggests IMPAIRED HOMEOSTASIS per A.D.A. criteria. Please note revised GLUCOSE reference range effective 2017. LAB L501.1000 7-18 mg/dL Normal BUN 18 LAB L501.1100 0.70-1.30 mg/dL Normal CREAT,SERUM 1.07 Result Comment: The validity of the calculated GFR AND GFRAA in patients over 70 years has not been determined. Clinical correlation is essential. LAB L501.1110 >60 mL/min Normal EST GFR 78 Result Comment: Non- GFR Calc LAB L501.1115 >60 mL/min Normal EST GFR - AA 94 Result Comment: GFR Calc LAB L501.1255 ml/min Normal Estimated CRCL 85.28 LAB L501.1300 10-20 RATIO Normal BUN/CRE 16.8 LAB L501.1500 6.4-8. g/dL Normal 2 T PROT 6.6 LAB L501.1800 3.2-5. g/dL Normal 0 ALB 3.6 LAB L501.1950 2.2-4. g/dL Normal 2 GLOB 3.0 LAB L501.2000 0.9-2. RATIO Normal 4 A/G 1.2 LAB L501.2200 8.5-10 mg/dL Normal .1 CA 8.6 LAB L501.4100 15-37 U/L Normal AST 18 LAB L501.4305 45-117 U/L Normal ALK P 77 LAB L501.4405 16-61 U/L Normal ALT 44 Result Comment: Please note revised ALT reference range effective 2017. LAB L501.4600 0.20-1.00 mg/dL Normal T BILI 0.40 LAB L501.5300 136-145 mmol/L Normal NA 143 LAB L501.5600 3.5-5.1 mmol/L Normal K 3.7 LAB L501.5900 98-107 mmol/L High CL 108 LAB L501.6100 21.0-32.0 mmol/L Normal CO2 26.0 LAB L501.6200 5-15 Normal GAP 9 Performed By: #### L500.4050, L501.4010 #### [facility] [address] [facility] [place], [address] TROPONIN-I Collected: 03/21/2017 Status: F Source: [facility] 7:45 PM [facility] REPOSITORY Order Comment: 'TROP' Serial specimen #1, #2, #3, or #4: 1 TYPE CODE TESTS RESULT OUT OF RANGE REFERENCE UNITS LAB L501.4010 <0.06 ng/mL Normal < 0.02 TROPONIN-I Result Comment: TROPONIN-I EXPECTED VALUES <0.05 NEGATIVE 0.06 - 0.59 AT RISK OF ID > OR = 0.60 SUGGEST ID Performed By: #### L500.4050, L501.4010 #### [facility] [address] [place], [address] BNP,B-TYPE NATRIURETIC Collected: 03/21/2017 Status: F Source: [facility] 7:45 PM [facility] REPOSITORY TYPE CODE TESTS RESULT OUT OF RANGE REFERENCE UNITS LAB L503.6620 0-100 pg/mL Normal B-TYPE 16.1 CARLOS A PEP Performed By: #### L503.6620 #### [facility] [address] [place], [address] CTA CHEST W/WO Observed: 03/21/2017 Status: F Source: [facility] 7:37 PM [facility] REPOSITORY [facility] Imaging Services [address] [place] [address] CTA Chest W/WO Contrast MR#: [id number] Acct: [id number] Name: YANICK ROWELL Rep #: [id number] : 1965 M 51 From: Calvin Rondon MD PCP: Care Physician, No Primary Status: REG ER Study: CTA Chest W/WO Contrast Date of Exam: 03/21/17 Exam# [id number] Ordering Dr: Dontrell Skelton MD STUDY: CTA CHEST REASON FOR EXAM: Male, 51 years old. Shortness of breath. History of fractured clavicle RADIATION DOSAGE (If Supplied By Facility): CTDIvol = ( 16.73 ) mGy, DLP = ( 782.05 ) mGycm TECHNIQUE: The examination was performed with the intravenous administration of 100 ml of Isovue 370 contrast material. Post-processing of the angiographic images was performed, with multiplanar reformation and 3D reconstruction. Individualized dose optimization techniques were used for this CT. COMPARISON: None. FINDINGS: There are no pulmonary infiltrates or pleural effusions. There is a 1 cm nodule adjacent to the minor fissure in the right lower lobe (image 129 series 2). There is no pneumothorax. There are no filling defects within the pulmonary arteries to suggest pulmonary embolus. The pulmonary arteries are normal in caliber. There is no evidence of thoracic aortic aneurysm or dissection. The heart and pericardium are within normal limits. There is no thoracic lymphadenopathy. Images through the upper abdomen demonstrate no significant abnormality. There are no destructive osseous lesions. CT/CTA Chest W/WO Contrast IMPRESSION: No evidence of pulmonary embolus or other acute thoracic disease. 1 cm nodule in the right lower lobe. Short-term follow-up or further evaluation with PET/CT is recommended. Electronically Signed: Calvin Rondon, at 20:48 EST Tel , Service support , CC: No Primary Care Physician; Dontrell Skelton MD Frozen Meat Cutter: Signed XR CHEST 2V FRONTAL/LAT Observed: 03/16/2017 Status: F Source: [facility] 8:17 AM [facility] REPOSITORY * * *Final Report* * * DATE OF EXAM: Mar 16 2017 8:17AM WOX 5291 - XR CHEST 2V FRONTAL/LAT / PROCEDURE REASON: Cough * * * * Physician Interpretation * * * * EXAMINATION: CHEST RADIOGRAPH (2 VIEW FRONTAL and LATERAL) Clinical History: Cough M: XC2_4 Comparison: There are no prior studies available for comparison RESULT: Lines, tubes, and devices: None. Lungs and pleura: There is no focal consolidation or acute pleural process. There is no overt pulmonary edema. Cardiomediastinal silhouette: Normal cardiomediastinal silhouette. Other: The visualized bony structures are intact IMPRESSION: No acute cardiopulmonary process. Frozen Meat Cutter: PSCNessa Transcribe Date/Time: Mar 16 2017 8:29A Dictated by : SAMSON CHANDLER MD This examination was interpreted and the report reviewed and electronically signed by: SAMSON CHANDLER MD on Mar 16 2017 8:29AM EST [id number] PROGRESS Observed: 03/16/2017 Status: COMPLETED Source: [place] 8:06 AM [facility] REPOSITORY HNO ID: [id number] Author: Mónica Ceja (Rt) Leisa Lakhani Service: (none) Author Type: Individual Pension Consultant Type: Progress Notes Filed: 03/16/2017 8:16 AM Note Text: Radiology Service Progress Note PATIENT NAME: Yanick Rowell DATE OF SERVICE: March 16, 2017 TIME: 8:06 AM PATIENT IDENTITY VERIFICATION COMPLETED USING TWO (2) METHODS: Patient confirmed name verbally and Date of . PATIENT GENDER DATA: Male PATIENT RELEVANT IMPLANT DATA REVIEWED: Not Applicable RADIOLOGY DEPARTMENT: General X-ray: Exam(s) Completed: Chest X-Ray PERIPHERAL IV DATA: Not applicable SIGNED BY: RT Bubba March 16, 2017 8:06 AM PROGRESS Observed: 03/16/2017 Status: COMPLETED Source: [place] 7:31 AM [facility] REPOSITORY HNO ID: [id number] Author: Pita Arredondo) Giorgi Service: (none) Author Type: Nurse Practitioner Type: Progress Notes Filed: 03/16/2017 9:51 AM Note Text: HPI Patient is a 51 year old male here today for an on going history of cough. States he finished ABX 3 days ago for ear pain and was treated prior to that for bronchitis. States he is out of breath when he coughs. Denies fever. Nothing makes it better or worse. Mucinex and Robitussin with little relief. No other concerns at this time. Review of Systems Constitutional: Negative for chills, fever and malaise/fatigue. HENT: Negative for congestion and sore throat. Respiratory: Positive for cough. Negative for sputum production, shortness of breath and wheezing. Cardiovascular: Negative. Musculoskeletal: Negative for myalgias. Neurological: Negative for headaches. Endo/Heme/Allergies: Negative for environmental allergies. All other systems reviewed and are negative. No past medical history on file. No past surgical history on file. ALLERGIES Review of patient's allergies indicates no known allergies. MEDICATIONS albuterol HFA (PROAIR HFA) 90 mcg/actuation inhaler Inhale 2 Puffs as instructed every 4 hours as needed. benzonatate (TESSALON PERLE) 100 mg capsule Take 1-2 capsules by mouth three times daily as needed. predniSONE (DELTASONE) 20 mg tablet Take 1 tablet by mouth twice daily for 5 days. predniSONE (DELTASONE) 20 mg tablet Prednisone 40 mg (2-20mg tablets) po QD for 5 days Zgsowggfdrdoxqi-Daahkatsw-GO (BROMFED DM) 2-30-10 mg/5 mL syrup Take 5 mL by mouth four times daily as needed. fluticasone (FLONASE) 50 mcg/actuation nasal spray Use 2 Sprays in each nostril once daily. No family history on file. Social History Substance Use Topics - Smoking status: Never Smoker - Smokeless tobacco: Never Used - Alcohol use Not on file BP 122/80 Pulse 90 Temp 36.5 ?C (97.7 ?F) (Tympanic) Wt 104.8 kg (231 lb) SpO2 99% Physical Exam Constitutional: He is oriented to person, place, and time and well-developed, well-nourished, and in no distress. Vital signs are normal. Mildly ill. HENT: Head: Normocephalic and atraumatic. Right Ear: Tympanic membrane, external ear and ear canal normal. Left Ear: Tympanic membrane, external ear and ear canal normal. Nose: No mucosal edema or rhinorrhea. Right sinus exhibits no maxillary sinus tenderness and no frontal sinus tenderness. Left sinus exhibits no maxillary sinus tenderness and no frontal sinus tenderness. Mouth/Throat: Uvula is midline, oropharynx is clear and moist and mucous membranes are normal. Neck: Neck supple. Cardiovascular: Normal rate, regular rhythm and normal heart sounds. Pulmonary/Chest: He has no wheezes. Good Air exchange noted at the bases. SpO2 99 % Lymphadenopathy: Head (right side): No submental, no submandibular and no tonsillar adenopathy present. Head (left side): No submental, no submandibular and no tonsillar adenopathy present. He has no cervical adenopathy. Neurological: He is alert and oriented to person, place, and time. Skin: Skin is warm and dry. Nursing note and vitals reviewed. ASSESSMENT/PLAN: 1. Cough - ICD9: 786.2, ICD10: R05 - XR negative per Radiology read (results reviewed with patient) - Tessalon perle - Steroid burst - Humidity prn - Vicks Vaporubs prn - BENZONATATE 100 MG CAPSULE - PREDNISONE 20 MG TABLET - XR CHEST 2V FRONTAL/LAT Prescription instructions reviewed with patient as applicable. Patient advised if symptoms do not improve or if symptoms worsen sooner, to contact their primary care physician. Potential red flag symptoms discussed with the patient. Reviewed appropriate action plan to take if red flag symptoms occur. Patient agreeable to treatment plan. Patient states he will be establishing with his 's PCP as he is aware he needs one. Pita Rand CNP PROGRESS Observed: 03/03/2017 Status: COMPLETED Source: [place] [address]:47 PM [facility] REPOSITORY HNO ID: [id number] Author: Daly Jesus (Kitty) SANTIAGO Fatima Service: (none) Author Type: Nurse Practitioner Type: Progress Notes Filed: 03/03/2017 1:26 PM Note Text: HPI Patient presents with: Cough: cough,chest congestion x 7 days Seen in 02/28 for URI, tx with Prednisone and Bromfed but worsening. Denies any otc treatment for symptoms. Review of Systems Constitutional: Positive for chills, fever and malaise/fatigue. HENT: Positive for congestion, ear pain and sore throat. Eyes: Negative for discharge and redness. Respiratory: Positive for cough. Negative for hemoptysis, sputum production, shortness of breath and wheezing. Gastrointestinal: Positive for vomiting (post-tussive). Negative for abdominal pain, diarrhea and nausea. Skin: Negative for rash. Neurological: Positive for headaches. All other systems reviewed and are negative. No past medical history on file. No past surgical history on file. ALLERGIES Review of patient's allergies indicates no known allergies. MEDICATIONS predniSONE (DELTASONE) 20 mg tablet Prednisone 40 mg (2-20mg tablets) po QD for 5 days Vlhbbjqwchfhufc-Cenaqjqds-RU (BROMFED DM) 2-30-10 mg/5 mL syrup Take 5 mL by mouth four times daily as needed. albuterol HFA (PROAIR HFA) 90 mcg/actuation inhaler Inhale 2 Puffs as instructed every 4 hours as needed. fluticasone (FLONASE) 50 mcg/actuation nasal spray Use 2 Sprays in each nostril once daily. No family history on file. Social History Substance Use Topics - Smoking status: Never Smoker - Smokeless tobacco: Never Used - Alcohol use Not on file Physical Exam Constitutional: He is well-developed, well-nourished, and in no distress. HENT: Head: Normocephalic and atraumatic. Right Ear: Ear canal normal. Tympanic membrane is injected. A middle ear effusion (serous) is present. Left Ear: External ear and ear canal normal. Tympanic membrane is injected. A middle ear effusion (serous) is present. Nose: Mucosal edema and rhinorrhea present. Right sinus exhibits no maxillary sinus tenderness and no frontal sinus tenderness. Left sinus exhibits no maxillary sinus tenderness and no frontal sinus tenderness. Mouth/Throat: Uvula is midline and mucous membranes are normal. Posterior oropharyngeal erythema present. No oropharyngeal exudate, posterior oropharyngeal edema or tonsillar abscesses. Eyes: Conjunctivae and EOM are normal. Pupils are equal, round, and reactive to light. Neck: Normal range of motion. Cardiovascular: Normal rate, regular rhythm and normal heart sounds. Pulmonary/Chest: Effort normal and breath sounds normal. No respiratory distress. He has no wheezes. He has no rales. A dry harsh cough was noted during this encounter. Talking in full sentences. Handling secretions without drooling. Lips and nailbeds are pink without cyanosis. Lymphadenopathy: Head (right side): No submental, no submandibular, no tonsillar, no preauricular and no posterior auricular adenopathy present. Head (left side): No submental, no submandibular, no tonsillar, no preauricular and no posterior auricular adenopathy present. He has no cervical adenopathy. Right cervical: No posterior cervical adenopathy present. Left cervical: No posterior cervical adenopathy present. Right: No supraclavicular adenopathy present. Left: No supraclavicular adenopathy present. Skin: Skin is warm and dry. Psychiatric: Affect normal. Nursing note and vitals reviewed. ASSESSMENT/PLAN: 1. Acute bronchitis, unspecified organism - ICD9: 466.0, ICD10: J20.9 (primary diagnosis) -Finish medication as prescribed from previous visit. -analgesics PRN -F/u with pcp in 3-5 days or sooner if symptoms are not improving or worsening 2. ALEK (middle ear effusion), bilateral - ICD9: 381.4, ICD10: H65.93 - Injected - Will begin treatment with Augmentin 875 mg PO BID for 10 days - The patient should also be given OTC decongestants prn, OTC cough and cold meds as needed, warm salt water gargles, throat lozenges and/or OTC throat spray as needed and nasal saline gtts and suction prn for the first 5-7 days of treatment. - Supportive care with plenty of fluids, rest, and analgesia prn. - Follow up in 3-5 days if symptoms persist or worsen. Prescription instructions reviewed with patient as applicable. Patient advised if symptoms do not improve or if symptoms worsen sooner, to contact their primary care physician. Potential red flag symptoms discussed with the patient. Reviewed appropriate action plan to take if red flag symptoms occur. Patient agreeable to treatment plan. Daly Fatima CNP CNOV Observed: 03/03/2017 Status: COMPLETED Source: [place] 12:15 PM [facility] REPOSITORY Office Visit (WSTR) YANICK ROWELL ([id number]) 1965 M Date Time Provider Department 03/03/17 12:15 PM DALY FATIMA (DAIRY MANAGEMENT SPECIALIST) [facility] During your visit today, we recorded the following information about you: Temperature Pulse Respiration Blood pressure 99 degrees 114/minute 17/minute 120/82 Weight 104.3 kg Daly Fatima CNP, CNP 03/03/2017 1:26 PM Signed HPI Patient presents with: Cough: cough,chest congestion x 7 days Seen in 02/28 for maycol HARVEY with Prednisone and Bromfed but worsening. Denies any otc treatment for symptoms. Review of Systems Constitutional: Positive for chills, fever and malaise/fatigue. HENT: Positive for congestion, ear pain and sore throat. Eyes: Negative for discharge and redness. Respiratory: Positive for cough. Negative for hemoptysis, sputum production, shortness of breath and wheezing. Gastrointestinal: Positive for vomiting (post-tussive). Negative for abdominal pain, diarrhea and nausea. Skin: Negative for rash. Neurological: Positive for headaches. All other systems reviewed and are negative. No past medical history on file. No past surgical history on file. ALLERGIES Review of patient's allergies indicates no known allergies. MEDICATIONS predniSONE (DELTASONE) 20 mg tablet Prednisone 40 mg (2-20mg tablets) po QD for 5 days Wdvaqizgnnnzlgg-Hqyyelzce-FT (BROMFED DM) 2-30-10 mg/5 mL syrup Take 5 mL by mouth four times daily as needed. albuterol HFA (PROAIR HFA) 90 mcg/actuation inhaler Inhale 2 Puffs as instructed every 4 hours as needed. fluticasone (FLONASE) 50 mcg/actuation nasal spray Use 2 Sprays in each nostril once daily. No family history on file. Social History Substance Use Topics - Smoking status: Never Smoker - Smokeless tobacco: Never Used - Alcohol use Not on file Physical Exam Constitutional: He is well-developed, well-nourished, and in no distress. HENT: Head: Normocephalic and atraumatic. Right Ear: Ear canal normal. Tympanic membrane is injected. A middle ear effusion (serous) is present. Left Ear: External ear and ear canal normal. Tympanic membrane is injected. A middle ear effusion (serous) is present. Nose: Mucosal edema and rhinorrhea present. Right sinus exhibits no maxillary sinus tenderness and no frontal sinus tenderness. Left sinus exhibits no maxillary sinus tenderness and no frontal sinus tenderness. Mouth/Throat: Uvula is midline and mucous membranes are normal. Posterior oropharyngeal erythema present. No oropharyngeal exudate, posterior oropharyngeal edema or tonsillar abscesses. Eyes: Conjunctivae and EOM are normal. Pupils are equal, round, and reactive to light. Neck: Normal range of motion. Cardiovascular: Normal rate, regular rhythm and normal heart sounds. Pulmonary/Chest: Effort normal and breath sounds normal. No respiratory distress. He has no wheezes. He has no rales. A dry harsh cough was noted during this encounter. Talking in full sentences. Handling secretions without drooling. Lips and nailbeds are pink without cyanosis. Lymphadenopathy: Head (right side): No submental, no submandibular, no tonsillar, no preauricular and no posterior auricular adenopathy present. Head (left side): No submental, no submandibular, no tonsillar, no preauricular and no posterior auricular adenopathy present. He has no cervical adenopathy. Right cervical: No posterior cervical adenopathy present. Left cervical: No posterior cervical adenopathy present. Right: No supraclavicular adenopathy present. Left: No supraclavicular adenopathy present. Skin: Skin is warm and dry. Psychiatric: Affect normal. Nursing note and vitals reviewed. ASSESSMENT/PLAN: 1. Acute bronchitis, unspecified organism - ICD9: 466.0, ICD10: J20.9 (primary diagnosis) -Finish medication as prescribed from previous visit. -analgesics PRN -F/u with pcp in 3-5 days or sooner if symptoms are not improving or worsening 2. ALEK (middle ear effusion), bilateral - ICD9: 381.4, ICD10: H65.93 - Injected - Will begin treatment with Augmentin 875 mg PO BID for 10 days - The patient should also be given OTC decongestants prn, OTC cough and cold meds as needed, warm salt water gargles, throat lozenges and/or OTC throat spray as needed and nasal saline gtts and suction prn for the first 5-7 days of treatment. - Supportive care with plenty of fluids, rest, and analgesia prn. - Follow up in 3-5 days if symptoms persist or worsen. Prescription instructions reviewed with patient as applicable. Patient advised if symptoms do not improve or if symptoms worsen sooner, to contact their primary care physician. Potential red flag symptoms discussed with the patient. Reviewed appropriate action plan to take if red flag symptoms occur. Patient agreeable to treatment plan. Daly Fatima CNP Referring Provider: SELF [200] Allergies As of Date: 03/03/2017 (No Known Allergies) Date Reviewed: 03/03/2017 Reviewed by: Rachel Camarena Cma - Fully Assessed Reason for Visit: Cough [28] Cmt: cough,chest congestion and SOB x 5 days Primary Visit Diagnosis:Acute bronchitis, unspecified organism [J20.9] Other Visit Diagnosis:ALEK (middle ear effusion), bilateral [H65.93] Order(s):amoxicillin-clavulanic acid (AUGMENTIN) 875-125 mg per tabletTake 1 tablet by mouth twice daily for 10 days.Disp: 20 tabletRfl: 0 Prescriptions as of 03/03/2017 Sig: PREDNISONE 20 MG TABLET Prednisone 40 mg (2-20mg tabl* BROMPHENIRAMINE-PSEUDOEPHEDRI* Take 5 mL by mouth four times* ALBUTEROL SULFATE HFA 90 MCG/* Inhale 2 Puffs as instructed * AMOXICILLIN 875 MG-POTASSIUM * Take 1 tablet by mouth twice * FLUTICASONE 50 MCG/ACTUATION * Use 2 Sprays in each nostril * Problem List As Of Date: 03/03/2017 (None) Prescriptions ordered this encounter Disp Refills Start End AMOXICILLIN 875 MG-POTASSIUM CLAVULA* 20 t* 0 03/03/2017 03/13/2017 Route: ORAL Sig: Take 1 tablet by mouth twice daily for 10 days. Disposition: Return if symptoms worsen or fail to improve. Follow-up and Disposition History Recorded Encounter Status:Closed by DALY FATIMA on 03/03/17 ALLERGIES ALLERGIES DATE TYPE / CODE NAME / CODE REACTION SEVERITY SOURCE 04/15/2017 Drug No Known Unknown [facility] Allergy/416 Allergies/W01160 Hospital 972893(SNOM 0388(RXNORM) Repository ED CT) Drug NO KNOWN [facility] Class/90849 ALLERGIES [place] 1003(SNOMED Repository CT) ENCOUNTERS ENCOUNTERS ADMIT/DISCHARGE ACCOUNT NUMBER ADMITTING ENCOUNTER LOCATION SOURCE CLASS 01/19/2018 [id number] Ambulatory [facility] ding:LABSPEC Repository 04/17/2017/04/18/19 [id number] Ambulatory [address] Repository 04/15/2017/04/17/19 [id number] Ambulatory [address] Repository 04/15/2017/04/16/19 [id number] Emergency [address] ding:ED Repository 04/11/2017/04/12/19 [id number] Ambulatory [address] Repository 04/11/2017/04/14/19 [id number] Ambulatory [address] Repository 03/30/2017/03/30/19 [id number] Emergency BBuilding:AYAN Rojo [address] [place] [address] Repository 03/21/2017/03/21/19 [id number] Emergency [address] ding:ED Repository 03/16/2017/03/16/19 [id number] Ambulatory [address] Repository 03/16/2017/03/16/19 [id number] Ambulatory [address] Repository 03/03/2017/03/03/19 [id number] Ambulatory [address] Repository PAYERS PAYERS ENCOUNTER GUARANTOR PAYER SUBSCRIBER SOURCE 01/19/2018 YANICK VIGIL: Mir [id number] [place] Insurance:ANTHEMPolicy [id number] Number: Hospital [address]Hrd: [phone]) [id number] Repository [phone] (HP) Date:[id number] [address] [place] [address] [place] [address]BU: 01/19/2018 Secondary NOT GIVENUNK [place] Insurance:SELF PAY [facility] Number: Effective Repository Date:2018-01-19 04/15/2017 Yanick R Primary Yanick R AkinDOB: [place] [id number] [place] Insurance:ANTHEMPolicy [id number], [place] Number: Hospital [address]Mhn: (330) [id number] Repository [phone] (HP) Date:[id number] [id number] [place] [address]TX: 04/15/2017 Secondary NOT GIVENUNK [place] Insurance:SELF PAY [facility] Number: Effective Repository Date:2017-04-15 03/30/2017 YANICK R Primary YANICK R AKINDOB: [facility] AKINDOB: Insurance:ANTHEM BLUE [id number] Foundation [id number] [place] [address] dwayne Repository [place]wayne Number: [facility] [place] [id number]: [phone]: ([phone]) Date:2017-03-30 [phone] (HP) [id number] (HP)Tel: [phone] Name:[facility] [phone] () [id number] [place] [address]ZR: 03/21/2017 Yanick R Primary Yanick R AkinDOB: [place] [id number] [place] Insurance:ANTHEMPolicy [id number] Number: Hospital [id number]: (330) [id number] Repository [phone] (HP) Date:[id number] [address]ECXAA[place], [place] [address]GZ: 03/21/2017 Secondary NOT GIVENUNK [place] Insurance:SELF PAY [facility] Number: Effective Repository Date:2017-03-21
== END ==
PROVIDERS: Family Provider Internal Medicine; PCP Internal Medicine; Referring Provider Internal Medicine Gastroenterology; Visit Provider Internal Medicine Gastroenterology
DX: K63.5 Polyp of colon (principal)
CPT/HCPCS: 88305